=== PATIENT | male | born 1950 | race Caucasian/White ===

== ENCOUNTER 2017-12-28 08:04 | Emergency (ER) | payer OTHER ==
--- NOTE | 2017-12-28 08:33 | RAD REPORT ---
EXAM DESCRIPTION: CT - Ct Stroke Brain Wo Cont - 12/28/2017 8:23 am CLINICAL HISTORY: Left-sided numbness x2 days COMPARISON: HEAD BRAIN W O CONTRAST dated 06/30/2009 TECHNIQUE: Computed axial tomography of the head was obtained. IV contrast was not requested. All CT scans are performed using dose optimization technique as appropriate and may include automated exposure control or mA/KV adjustment according to patient size. FINDINGS: An intracranial bleed is not seen . The ventricles are normal in caliber. No extra-axial fluid collection is noted. An 11 millimeter low-density areas present within the right thalamus. It has developed since the prio r exam. Low-density areas within the left cerebrum are unchanged and likely indicate old infarction. Fluid within the sinuses/ mastoids is not seen. IMPRESSION: 11 millimeter low-density area within the right thalamus has developed since 2009. It deluca s more of the appearance of being acute then a chronic and probably represents an acute infarction. Exam was discussed with Manohar in the Emergency Room at 8:25 a.m. December 28, 2017
[2017-12-28 08:41] LABS: Absolute Lymphocytes (CBC) 3.5 K/uL (0.7-4.9); Absolute Neutrophil 3.7 K/uL (1.8-8.0); Basophils % 0.9 % (0-1.3); Eosinophils % 2.6 % (0-4.4); Hematocrit 51.2 % (39.6-49.0); Lymphocytes % 41.4 % (15.3-44.8); MCH 33.1 pg (27.0-35.0); MCV 94.5 fL (80-100); MPV 8.3 fL (7.6-11.3); Monocytes % 11.9 % (3.3-12.3); RBC Red Blood Cell Count 5.43 M/uL (4.33-5.43)
[2017-12-28 08:46] LABS: Protime INR 0.93
[2017-12-28 08:50] LABS: Potassium 4.4 mmol/L (3.5-5.1)
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
--- NOTE | 2017-12-28 09:10 | ER ---
Nurse's Notes [facility] Name: Jose Benson Age: 67 yrs Sex: Male : 1950 Arrival Date: 12/28/2017 Time: 08:05 Bed 16 Private MD: Juan Coles E Diagnosis: Cerebral infarction-Right thalamus Presentation: 12/28 08:14 Presenting complaint: Patient states: i have feeling of numbness on my L side, L side hj of face, L arm, L rib cage, L leg for 2 days now, this morning when i woke up around 4 am, i felt the worsening symptom with weakness on my L arm and L leg; denies nausea and vomiting; denies headache, speech normal; A\\T\\O x 4;. Transition of care: patient was not received from another setting of care. Onset of symptoms was December 26, 2017. Risk Assessment: Do you want to hurt yourself or someone else? Patient reports no desire to harm self or others. Initial Sepsis Screen: Does the patient meet any 2 criteria? No. Patient's initial sepsis screen is negative. Does the patient have a suspected source of infection? No. Patient's initial sepsis screen is negative. Care prior to arrival: None. 08:14 Method Of Arrival: Ambulatory 08:14 Acuity: DANDY 3 hj 08:14 An acute neurological deficit is present. The patients blood glucose was checked before hj arriving to the hospital and was found to be normal. Triage Assessment: 08:14 General: Appears in no apparent distress. uncomfortable, Behavior is cooperative, hj appropriate for age, anxious. Pain: Denies pain. EENT: No signs and/or symptoms were reported regarding the EENT system. Neuro: Level of Consciousness is awake, alert, obeys commands, Oriented to person, place, time, situation, Appropriate for age. Cardiovascular: Capillary refill < 3 seconds Patient's skin is warm and dry. Respiratory: Airway is patent Respiratory effort is even, unlabored, Respiratory pattern is regular, symmetrical. GI: No signs and/or symptoms were reported involving the gastrointestinal system. : No signs and/or symptoms were reported regarding the genitourinary system. Derm: No signs and/or symptoms reported regarding the dermatologic system. Musculoskeletal: Capillary refill < 3 seconds, Reports numbness in left ear, left cheek, left bahai, left jaw, left arm and left leg. 08:14 The onset of the patients symptoms was December 26, 2017 at 09:00. hj 08:14 Neuro: Reports numbness weakness in left leg and left arm and face and left jaw and hj left bahai and left cheek and left ear. Stroke Activation: Symptom onset > 6 hours Physician: Stroke Attending; Name: ; Notified At: 08:14; Arrived At: 08:14 Physician: Chief Stroke Resident; Name: ; Notified At: 08:14; Arrived At: Physician: Stroke Resident; Name: ; Notified At: 08:14; Arrived At: Physician: ED Attending; Name: ; Notified At: 08:14; Arrived At: Physician: ED Resident; Name: ; Notified At: 08:14; Arrived At: Historical: - Allergies: 08:17 No Known Allergies; hj - Home Meds: 08:17 lisinopril 40 mg oral tab 1 tab once daily [Active]; gabapentin Oral [Active]; hj Metformin Oral [Active]; Toujeo SoloStar subcutaneous [Active]; - PMHx: 08:17 Diabetes - IDDM; Hypertension; neuropathy; hj - PSHx: 08:17 nephrectomy; splenectomy; retinal sx; hj - Immunization history:: Adult Immunizations unknown. - Social history:: Smoking status: Patient/guardian denies using tobacco, Patient/guardian denies using alcohol. - Ebola Screening: : Patient negative for fever greater than or equal to 101.5 degrees Fahrenheit, and additional compatible Ebola Virus Disease symptoms Patient denies exposure to infectious person Patient denies travel to an Ebola-affected area in the 21 days before illness onset. Screenin:18 Abuse screen: Denies threats or abuse. Denies injuries from another. Nutritional hj screening: No deficits noted. Tuberculosis screening: No symptoms or risk factors identified. Fall Risk None identified. Assessment: 08:15 Reassessment: pt was wheeled to CT;. hj 08:30 Patient has been NPO before screening. The patient is alert, and able to follow commands. The patient does not exhibit slurred or garbled speech. The patient is not exhibiting difficulty speaking. The patient does not exhibit difficulty understanding words. The patient is able to swallow own secretions with no drooling or need for suction. Patient tolerated one teaspoon of water. No drooling, immediate coughing, gurgling, or clearing of the throat was noted. The patient passed the bedside swallow screening. Oral medications may be given as ordered. Contact Physician for further diet orders. Provider notified of bedside swallow screening results: Julio Galarza RN. 08:30 T-PA (Activase) Screening: Contraindications: Rapidly improving condition or minor hj deficit: No. 08:45 Reassessment: pt states, "i took 1 tab of aspirin 325 mg today before coming in the ED";. 09:20 Reassessment: report called to Maria L Najera RN, room 2254 nurse;. Vital Signs: 08:21 BP 196 / 104; Pulse 91; Resp 18; Temp 97.6(TE); Pulse Ox 100% on R/A; Weight 72.57 kg; Height 5 ft. 9 in. (175.26 cm); Pain 0/10; 08:54 BP 178 / 76; Pulse 74; Resp 18; Pulse Ox 95% on R/A; hj 09:24 BP 179 / 103; Pulse 70; Resp 18; Pulse Ox 100% on R/A; hj 09:55 BP 175 / 100; Pulse 72; Resp 18; Pulse Ox 100% on R/A; hj 08:21 Body Mass Index 23.63 (72.57 kg, 175.26 cm) hj 09:24 provider aware of BP; NIH Stroke Scale Scores: 08:25 NIHSS Score: 2 pm1 08:30 NIHSS Score: 2 ED Course: 08:05 Patient arrived in ED. mr 08:05 Neptali Pastrana MD is Private Physician. mr 08:05 Juan Coles MD is Private Physician. mr 08:08 [facility]. pm1 08:08 Akira Jaramillo MD is Attending Physician. pm1 08:12 Julio Galarza, RN is Primary Nurse. hj 08:14 Arm band placed on right wrist. hj 08:14 Patient has correct armband on for positive identification. Placed in gown. Bed in low hj position. Call light in reach. Side rails up X 1. Adult w/ patient. 08:14 Initial lab(s) drawn, by ED staff, sent to lab. Inserted saline lock: 20 gauge in right hj antecubital area, using aseptic technique. Blood collected. 08:16 Triage completed. hj 08:24 CT Stroke Brain w/o Contrast In Process Unspecified. EDMS 08:34 initiated a transfer with Aria from the [facility] transfer center. eb 08:[address] Bob the neurologist from [facility] with Manohar for patient eb transfer consultation. 08:49 X-ray completed. Portable x-ray completed in exam room. Patient tolerated procedure jb2 well. 08:49 connected the hospitalist from [facility] with Manohar for patient transfer eb consulation. 08:55 Stroke CXR 1 View In Process Unspecified. EDMS 09:54 No provider procedures requiring assistance completed. Patient transferred, IV remains hj in place. intact. Administered Medications: 09:39 Drug: Tylenol 500 mg Route: PO; ss 09:56 Follow up: Response: Pain is decreased Point of Care Testing: Blood Glucose: 08:14 Blood Glucose: 131 mg/dL; Ranges: Outcome: 09:09 ER care complete, transfer ordered by . pm1 09:55 Transferred by ground EMS to [facility], Transfer form completed. X-rays sent w/ patient. 09:55 Condition: stable 09:55 Instructed on the need for transfer, Demonstrated understanding of instructions. 09:56 Patient left the ED. NIH Stroke Scale - NIH Stroke Score Date: 12/28/2017 Time: 08:25 Total Score = 2 1a. Level of Consciousness (LOC) - 0(Alert) 1b. Level of Consciousness (LOC) (Year \\T\\ Age) - 0(Both) 1c. LOC Commands (Open \\T\\ Closes Eyes/Automobile Service Station Manager) - 0(Both) 2. Best Gaze (Lateral Gaze Paresis) - 0(Normal) 3. Visual Field Loss - 0(No visual loss) 4. Facial Palsy - 0(Normal) 5a. Left Arm: Motor (10-second hold) - 1(Drift) 5b. Right Arm: Motor (10-second hold) - 0(No drift) 6a. Left Leg: Motor (5-second hold - always test supine) - 1(Drift) 6b. Right Leg: Motor (5-second hold - always test supine) - 0(No drift) 7. Limb Ataxia (finger/nose \\T\\ heel/rinaldi - test with eyes open) - 0(Absent) 8. Sensory Loss (pinprick arms/legs/face) - 0(Normal) 9. Best Language: Aphasia (description/naming/reading) - 0(No aphasia) 10. Dysarthria (speech clarity - read or repeat words) - 0(Normal) 11. Extinction and Inattention (visual/tactile/auditory/spatial/personal) - 0(No abnormality) Initials: pm1 NIH Stroke Scale - NIH Stroke Score Date: 12/28/2017 Time: 08:30 Total Score = 2 1a. Level of Consciousness (LOC) - 0(Alert) 1b. Level of Consciousness (LOC) (Year \\T\\ Age) - 0(Both) 1c. LOC Commands (Open \\T\\ Closes Eyes/Automobile Service Station Manager) - 0(Both) 2. Best Gaze (Lateral Gaze Paresis) - 0(Normal) 3. Visual Field Loss - 0(No visual loss) 4. Facial Palsy - 0(Normal) 5a. Left Arm: Motor (10-second hold) - 0(No drift) 5b. Right Arm: Motor (10-second hold) - 0(No drift) 6a. Left Leg: Motor (5-second hold - always test supine) - 2(Drift, some effort against gravity) 6b. Right Leg: Motor (5-second hold - always test supine) - 0(No drift) 7. Limb Ataxia (finger/nose \\T\\ heel/rinaldi - test with eyes open) - 0(Absent) 8. Sensory Loss (pinprick arms/legs/face) - 0(Normal) 9. Best Language: Aphasia (description/naming/reading) - 0(No aphasia) 10. Dysarthria (speech clarity - read or repeat words) - 0(Normal) 11. Extinction and Inattention (visual/tactile/auditory/spatial/personal) - 0(No abnormality) Initials: ruby Signatures: Dispatcher [employer] [facility] Fernandez David Hammer jb2 Rae Brush RN RN ss Julio Galarza RN RN hj Marinas, Patrick, [facility] CHILD CARE DIRECTOR pm1 Renée Malone Corrections: (The following items were deleted from the chart) 08:28 08:21 BP 196 / 104; Pulse 91bpm; Resp 18bpm; Pulse Ox 100% RA; Temp 98.1F hj Temporal; 77.11 kg; Height 5 ft. 8 in.; BMI: 25.8; Pain 0/10; hj
[2017-12-28] MEDS ORDERED: ACETAMINOPHEN 500 MG TAB ONE (09:50)
--- NOTE | 2017-12-28 10:30 | RAD REPORT ---
EXAM DESCRIPTION: Itzel Single View12/28/2017 8:55 am CLINICAL HISTORY: Chest pain COMPARISON: None FINDINGS: Calcified granuloma is present within the right lung. The lungs appear clear of acute infiltrate. The heart is normal size IMPRESSION: No acute abnormalities displayed
--- NOTE | 2017-12-29 07:58 | EKG ---
Test Date: 2017-12-27 Test Time: 11:12:21 Coffee Machine Technician: BERONICA MEASUREMENT RESULTS: Intervals: Rate: 106 SC: 122 QRSD: 74 QT: 322 QTc: 427 Moyers: P: 73 SC: 122 QRS: 58 T: 75 INTERPRETIVE STATEMENTS: Sinus tachycardia Otherwise normal ECG Compared to ECG 01/03/2010 07:42:24 Sinus rhythm no longer present Ventricular premature complex(es) no longer present T-wave abnormality no longer present Electronically Signed On 12-29-17 07:55:17 CDT by Antonio Galaviz
--- NOTE | 2017-12-30 07:11 | EKG ---
Test Date: 2017-12-28 Test Time: 08:36:12 Sheet Rock Installation Helper: TANYA MEASUREMENT RESULTS: Intervals: Rate: 77 [place]: 170 QRSD: 112 QT: 388 QTc: 439 Merkel: P: 59 [place]: 170 QRS: 14 T: 81 INTERPRETIVE STATEMENTS: Normal sinus rhythm Nonspecific T wave abnormality Abnormal ECG Compared to ECG 12/27/2017 11:12:21 T-wave abnormality now present Sinus tachycardia no longer present Electronically Signed On 12-30-17 07:09:41 CDT by Antonio Galaviz
== END 2017-12-28 09:56 | disposition short-term general hospital (02) ==
LOC: ER 08:04
DX: I63.8 Other cerebral infarction (principal); I10 Essential (primary) hypertension; R29.702 NIHSS score 2; E11.9 Type 2 diabetes mellitus without complications; Z79.4 Long term (current) use of insulin
CPT/HCPCS: 36415; 70450; 71045; 80048; 82962; 85025; 85610; 85730; 93005; 99285

== ENCOUNTER 2018-01-26 22:35 | Emergency (ER) | payer OTHER ==
--- OUTSIDE RECORDS SUMMARY | 2018-01-26 22:37 | XMS REPORT ---
:1950 [facility] Address [address] [place] [address] Dr. Cortez [address] [place] [id number] Care Team Providers Name Role Phone ALISSA LOPEZ Unavailable Unavailable Problems This patient has no known problems. Allergies, Adverse Reactions, Alerts This patient has no known allergies or adverse reactions. Medications This patient has no known medications. Results Test Description Test Time Test Comments Text Results Atomic Results Result Comments POCT-GLUCOSE METER 2017-12-30 07:47:00 Test Item Value Reference Range Comments POC-GLUCOSE METER (BEAKER) (test 79 mg/dL 70-110 TESTED AT [facility] [address] [facility] okae=[id number]) [facility] [address] BASIC METABOLIC [id number] 05:19:00 Test Item Value Reference Range Comments SODIUM (BEAKER) (test 134 meq/L 136-145 tgfv=372) POTASSIUM (BEAKER) (test 3.8 meq/L 3.5-5.1 ibnb=673) CHLORIDE (BEAKER) (test 104 meq/L 98-107 xmic=553) CO2 (BEAKER) (test 23 meq/L 22-29 wegr=231) BLOOD UREA NITROGEN 13 mg/dL 7-21 (BEAKER) (test qzwr=682) CREATININE (BEAKER) (test 0.66 mg/dL 0.57-1.25 sjet=927) GLUCOSE RANDOM (BEAKER) 70 mg/dL 70-105 (test pfvr=792) CALCIUM (BEAKER) (test 8.8 mg/dL 8.4-10.2 aait=907) EGFR (BEAKER) (test 121 mL/min/1.73 sq m ESTIMATED GFR IS NOT comn=1188) ACCURATE CREATININE CLEARANCE IN PREDICTING GLOMERULAR FILTRATION RATE. ESTIMATED GFR IS NOT APPLICABLE FOR DIALYSIS PATIENTS. MR, MRA, BRAIN, WITHOUT [id number] 23:04:00Reason for exam:-> Ischemic Stroke EvaluationFINAL REPORT CLINICAL HISTORY: StrokeIschemic Stroke Evaluation TECHNIQUE: MRI of the brain utilizing axial T2 , FLAIR, GRE, DWI; sagittal and coronal T1-weighted images.MRA of the head utilizing 3-D hmmk-gh-qdorfb technique, with 3-D reconstructions. MRA of the neck utilizing 2-D and 3-D jtdm-ur-kmqgug technique, with 3-D reconstructions. COMPARISON: None MRI Brain without contrast Findings:Brain:Acute infarction within the right thalamus. Remote bilateral parietal occipitaland frontal lobe infarction. Remote left cerebellar infarction. Multiple bilateral T2 and FLAIR hyperintense periventricular and deep white matter foci likely represent chronic white matter microvascular disease.No intracranial hemorrhage. Generalized parenchymal volume loss with commensurate enlargement of CSF spaces and ventricles. There is no hydrocephalus or midline shift. There are no extra -axial fluid collections. The craniocervical junction is preserved. The major intracranial flow-voids appear patent. Bilateral misshapen globes. Heterogeneous marrow signal clivus. Polypoid mucosal thickening in the right frontal sinus. Right mastoid air cell effusion. Middle ears clear. MRA head: Severe stenosis of the V4 segment of the left vertebral artery and moderate stenosis of the proximal V4 segment of the right vertebral artery. Anterior circulation demonstrates no significant stenosis. The bilateral posterior cerebral arteries and basilar artery are patent.There is no evidence of intracranial aneurysm or major branch vessel occlusion. MRA NeckEvaluation of the cervical vasculature secondary to motion artifact.There is approximately 50% stenosis of the origin of the right internal carotid artery secondary to atherosclerosis. Approximate 40% stenosis of the origin of the left internal carotid artery secondary to atherosclerosis. There is antegrade flow in the vertebral arteries in theneck. IMPRESSION:Acute infarction within the right thalamus. Remote infarctions with encephalomalacia in the bilateral parietal, occipital frontal lobes and also within the left cerebellar hemisphere.Severe stenosis of the V4 segment of the left vertebral artery and moderate stenosis of the proximalV4 segment of the right vertebral artery. Evaluation of the cervical vasculature secondary to motionartifact. There is approximately 50% stenosis of the origin of the right internal carotid artery and40% stenosis of the origin of the left internal carotid artery secondary to atherosclerosis. NOTIFICATION: The significant results of this study were discussed with and acknowledged by the stroke team, by telephone on 12/29/2017 11:04 PM. Signed: Yessi Grewal Verified Date/Time: 12/29/2017 23:04:35 Reading Location: [address] Transitional Reading Room MR, MRA, NECK, WITHOUT IV [id number] 23:04:00Reason for exam:->Ischemic Stroke EvaluationFINAL REPORT CLINICAL HISTORY: StrokeIschemic Stroke Evaluation TECHNIQUE: MRI of the brain utilizing axial T2, FLAIR, GRE, DWI; sagittal and coronal T1-weighted images.MRA of the head utilizing 3-D time-of- flight technique, with 3-D reconstructions. MRA of the neck utilizing 2-D and 3- D gnam-vx-gdgigt technique, with 3-D reconstructions. COMPARISON: None MRI Brain without contrast Findings:Brain:Acute infarction within the right thalamus. Remote bilateral parietal occipitaland frontal lobe infarction. Remote left cerebellar infarction. Multiple bilateral T2 and FLAIR hyperintense periventricular and deep white matter foci likely represent chronic white matter microvascular disease.No intracranial hemorrhage. Generalized parenchymal volume loss with commensurate enlargement of CSF spaces and ventricles. There is no hydrocephalus or midline shift. There are no extra- axial fluid collections. The craniocervical junction is preserved. The major intracranial flow-voids appear patent. Bilateral misshapen globes. Heterogeneous marrow signal clivus. Polypoid mucosal thickening in the right frontal sinus. Right mastoid air cell effusion. Middle ears clear. MRA head: Severe stenosis of the V4 segment of the left vertebral artery and moderate stenosis of the proximal V4 segment of the right vertebral artery. Anterior circulation demonstrates no significant stenosis. The bilateral posterior cerebral arteries and basilar artery are patent.There is no evidence of intracranial aneurysm or major branch vessel occlusion. MRA NeckEvaluation of the cervical vasculature secondary to motion artifact.There is approximately 50% stenosis of the origin of the right internal carotid artery secondary to atherosclerosis. Approximate 40% stenosis of the origin of the left internal carotid artery secondary to atherosclerosis. There is antegrade flow in the vertebral arteries in theneck. IMPRESSION:Acute infarction within the right thalamus. Remote infarctions with encephalomalacia in the bilateral parietal, occipital frontal lobes and also within the left cerebellar hemisphere.Severe stenosis of the V4 segment of the left vertebral artery and moderate stenosis of the proximalV4 segment of the right vertebral artery. Evaluation of the cervical vasculature secondary to motionartifact. There is approximately 50% stenosis of the origin of the right internal carotid artery and40% stenosis of the origin of the left internal carotid artery secondary to atherosclerosis. NOTIFICATION: The significant results of this study were discussed with and acknowledged by the stroke team, by telephone on 12/29/2017 11:04 PM. Signed: Yessi Grewal Verified Date/Time: 12/29/2017 23:04:35 Reading Location: [address] Transitional Reading Room MR, BRAIN, WITHOUT [id number] 23:04:00Reason for exam:->Ischemic Stroke EvaluationFINAL REPORT CLINICAL HISTORY: StrokeIschemic Stroke Evaluation TECHNIQUE: MRI of the brain utilizing axial T2, FLAIR, GRE, DWI; sagittal and coronal T1-weighted images.MRA of the head utilizing 3-D time-of- flight technique, with 3-D reconstructions. MRA of the neck utilizing 2-D and 3- D emnk-sv-bahdmi technique, with 3-D reconstructions. COMPARISON: None MRI Brain without contrast Findings:Brain:Acute infarction within the right thalamus. Remote bilateral parietal occipitaland frontal lobe infarction. Remote left cerebellar infarction. Multiple bilateral T2 and FLAIR hyperintense periventricular and deep white matter foci likely represent chronic white matter microvascular disease.No intracranial hemorrhage. Generalized parenchymal volume loss with commensurate enlargement of CSF spaces and ventricles. There is no hydrocephalus or midline shift. There are no extra- axial fluid collections. The craniocervical junction is preserved. The major intracranial flow-voids appear patent. Bilateral misshapen globes. Heterogeneous marrow signal clivus. Polypoid mucosal thickening in the right frontal sinus. Right mastoid air cell effusion. Middle ears clear. MRA head: Severe stenosis of the V4 segment of the left vertebral artery and moderate stenosis of the proximal V4 segment of the right vertebral artery. Anterior circulation demonstrates no significant stenosis. The bilateral posterior cerebral arteries and basilar artery are patent.There is no evidence of intracranial aneurysm or major branch vessel occlusion. MRA NeckEvaluation of the cervical vasculature secondary to motion artifact.There is approximately 50% stenosis of the origin of the right internal carotid artery secondary to atherosclerosis. Approximate 40% stenosis of the origin of the left internal carotid artery secondary to atherosclerosis. There is antegrade flow in the vertebral arteries in theneck. IMPRESSION:Acute infarction within the right thalamus. Remote infarctions with encephalomalacia in the bilateral parietal, occipital frontal lobes and also within the left cerebellar hemisphere.Severe stenosis of the V4 segment of the left vertebral artery and moderate stenosis of the proximalV4 segment of the right vertebral artery. Evaluation of the cervical vasculature secondary to motionartifact. There is approximately 50% stenosis of the origin of the right internal carotid artery and40% stenosis of the origin of the left internal carotid artery secondary to atherosclerosis. NOTIFICATION: The significant results of this study were discussed with and acknowledged by the stroke team, by telephone on 12/29/2017 11:04 PM. Signed: Yessi Grewal Verified Date/Time: 12/29/2017 23:04:35 Reading Location: [address] Reading Room POCT-GLUCOSE [id number] 21:28:00 Test Item Value Reference Range Comments POC-GLUCOSE METER (BEAKER) 136 mg/dL 70-110 TESTED AT [address] (test kdfy=5577) [place] [address] POCT-GLUCOSE [id number] 15:56:00 Test Item Value Reference Range Comments POC-GLUCOSE METER (BEAKER) 198 mg/dL 70-110 TESTED AT [address] (test lnuc=2641) [place] [address] POCT-GLUCOSE [id number] 14:50:00 Test Item Value Reference Range Comments POC-GLUCOSE METER (BEAKER) 204 mg/dL 70-110 TESTED AT [address] (test ybck=1395) [place] [address] POCT-GLUCOSE [id number] 12:16:00 Test Item Value Reference Range Comments POC-GLUCOSE METER (BEAKER) 127 mg/dL 70-110 TESTED AT [address] (test cfnp=2124) [place] [address] HEMOGLOBIN [id number] 10:57:00 Test Item Value Reference Range Comments HEMOGLOBIN A1C (BEAKER) (test lbov=424) 8.3 % 4.3-6.1 TROPONIN [id number] 02:04:00 Test Item Value Reference Range Comments TROPONIN I (BEAKER) (test nuak=774) 0.01 ng/mL 0.00-0.03 Troponin I (TnI) levels must be interpreted in the context of the presenting symptoms and the clinical findings. Elevated TnI levels indicate myocardial damage, but are not specific for ischemic heart disease. Elevated TnI levels are seen in patients with other cardiac conditions (including myocarditis and congestive heart failure), and slight TnI elevations occur in patients with other conditions, including sepsis, renal failure, acidosis, acute neurological disease, and persistent tachyarrhythmia.LIPID [id number] 01:58:00 Test Item Value Reference Range Comments TRIGLYCERIDES (BEAKER) (test pqan=403) 100 mg/dL CHOLESTEROL (BEAKER) (test uozi=403) 147 mg/dL HDL CHOLESTEROL (BEAKER) (test ugod=110) 31 mg/dL LDL CHOLESTEROL CALCULATED (BEAKER) (test 96 mg/dL gyis=329) Triglyceride Reference Range: Low Risk <150 Borderline 150- 199 High Risk 200-499 Very High Risk >=500Cholesterol Reference Range: Low Risk <200 Borderline 200-239 High Risk > 240HDL Cholesterol Reference Range: Low Risk >=60 High Risk <40LDL Cholesterol Reference Range: Optimal <100 Near Optimal 100-129 Borderline 130-159 High 160-189 Very High >=190BASIC METABOLIC [id number] 01:58:00 Test Item Value Reference Range Comments SODIUM (BEAKER) (test 132 meq/L 136-145 nrvs=930) POTASSIUM (BEAKER) (test 4.3 meq/L 3.5-5.1 kvzz=474) CHLORIDE (BEAKER) (test 102 meq/L 98-107 miya=141) CO2 (BEAKER) (test 23 meq/L 22-29 exqh=467) BLOOD UREA NITROGEN 14 mg/dL 7-21 (BEAKER) (test rptf=058) CREATININE (BEAKER) (test 0.82 mg/dL 0.57-1.25 ozpn=266) GLUCOSE RANDOM (BEAKER) 220 mg/dL 70-105 (test ldli=860) CALCIUM (BEAKER) (test 8.6 mg/dL 8.4-10.2 ones=865) EGFR (BEAKER) (test 94 mL/min/1.73 sq m ESTIMATED GFR IS NOT tuln=5301) ACCURATE CREATININE CLEARANCE IN PREDICTING GLOMERULAR FILTRATION RATE. ESTIMATED GFR IS NOT APPLICABLE FOR DIALYSIS PATIENTS. POCT-GLUCOSE [id number] 20:50:00 Test Item Value Reference Range Comments POC-GLUCOSE METER (BEAKER) 266 mg/dL 70-110 TESTED AT [facility] [address] [facility] (test ijvw=0438) [facility] [address] TROPONIN [id number] 18:56:00 Test Item Value Reference Range Comments TROPONIN I (BEAKER) (test msjk=015) 0.01 ng/mL 0.00-0.03 Troponin I (TnI) levels must be interpreted in the context of the presenting symptoms and the clinical findings. Elevated TnI levels indicate myocardial damage, but are not specific for ischemic heart disease. Elevated TnI levels are seen in patients with other cardiac conditions (including myocarditis and congestive heart failure), and slight TnI elevations occur in patients with other conditions, including sepsis, renal failure, acidosis, acute neurological disease, and persistent tachyarrhythmia.RAD, CHEST, 1 VIEW, NON [id number] 16:54:00Reason for exam:->sobShould this be performed at the bedside?-> YesFINAL REPORT History: Shortness of breath Comparison : None Findings: 4 mm calcified granuloma at the right lung apex. Lungs otherwise clear. No pleural effusions or pneumothorax. The heart shadow is normal in size. The thoracic aorta is mildly tortuous. Degenerative and hypertrophic changes are present in the spine. There are surgical clips in the abdomen. Impression: No evidence of acute cardiopulmonary disease. Signed: Nunu Swenson MDReport Verified Date/Time: 12/28/2017 16:54:45 Reading Location: [address] Reading Room TSH/FREE T4 IF [id number] 14:24:00 Test Item Value Reference Range Comments THYROID STIMULATING HORMONE (BEAKER) (test 1.27 uIU/mL 0.35-4.94 ruyt=610) VITAMIN B12 AND [id number] 14:24:00 Test Item Value Reference Range Comments VITAMIN B12 (BEAKER) (test mwae=437) 452 pg/mL 213-816 FOLATE (BEAKER) (test jmef=061) 13.1 ng/mL >=7.0 [id number] 13:51:00 Test Item Value Reference Range Comments PHOSPHORUS (BEAKER) (test otxg=729) 3.9 mg/dL 2.3-4.7 [id number] 13:51:00 Test Item Value Reference Range Comments MAGNESIUM (BEAKER) (test scsc=955) 2.0 mg/dL 1.6-2.6 COMPREHENSIVE METABOLIC [id number] 13:51:00 Test Item Value Reference Range Comments TOTAL PROTEIN (BEAKER) 7.3 gm/dL 6.0-8.3 (test crgz=914) ALBUMIN (BEAKER) (test 3.8 g/dL 3.5-5.0 hoag=4833) ALKALINE PHOSPHATASE 98 U/L 40-150 (BEAKER) (test moca=502) BILIRUBIN TOTAL (BEAKER) 0.5 mg/dL 0.2-1.2 (test gtbw=742) SODIUM (BEAKER) (test 131 meq/L 136-145 ndje=730) POTASSIUM (BEAKER) (test 4.2 meq/L 3.5-5.1 cnxe=325) CHLORIDE (BEAKER) (test 99 meq/L 98-107 fjkb=714) CO2 (BEAKER) (test 26 meq/L 22-29 pleu=620) BLOOD UREA NITROGEN 11 mg/dL 7-21 (BEAKER) (test mhtb=564) CREATININE (BEAKER) (test 0.82 mg/dL 0.57-1.25 pcmp=341) GLUCOSE RANDOM (BEAKER) 74 mg/dL 70-105 (test wvnm=556) CALCIUM (BEAKER) (test 9.3 mg/dL 8.4-10.2 pmsu=954) AST (SGOT) (BEAKER) (test 16 U/L 5-34 oily=532) ALT (SGPT) (BEAKER) (test 14 U/L 6-55 digo=057) EGFR (BEAKER) (test 94 mL/min/1.73 sq m ESTIMATED GFR IS NOT zaxx=2419) ACCURATE CREATININE CLEARANCE IN PREDICTING GLOMERULAR FILTRATION RATE. ESTIMATED GFR IS NOT APPLICABLE FOR DIALYSIS PATIENTS. BASIC METABOLIC [id number] 13:51:00 Test Item Value Reference Range Comments SODIUM (BEAKER) (test 131 meq/L 136-145 jqjt=238) POTASSIUM (BEAKER) (test 4.2 meq/L 3.5-5.1 bbck=978) CHLORIDE (BEAKER) (test 99 meq/L 98-107 hkza=781) CO2 (BEAKER) (test 26 meq/L 22-29 kpmh=402) BLOOD UREA NITROGEN 11 mg/dL 7-21 (BEAKER) (test olpx=546) CREATININE (BEAKER) (test 0.82 mg/dL 0.57-1.25 talf=794) GLUCOSE RANDOM (BEAKER) 74 mg/dL 70-105 (test dvry=551) CALCIUM (BEAKER) (test 9.3 mg/dL 8.4-10.2 scfp=381) EGFR (BEAKER) (test 94 mL/min/1.73 sq m ESTIMATED GFR IS NOT jcce=0179) ACCURATE CREATININE CLEARANCE IN PREDICTING GLOMERULAR FILTRATION RATE. ESTIMATED GFR IS NOT APPLICABLE FOR DIALYSIS PATIENTS. LIPID [id number] 13:51:00 Test Item Value Reference Range Comments TRIGLYCERIDES (BEAKER) (test awpc=218) 41 mg/dL CHOLESTEROL (BEAKER) (test bmwz=466) 160 mg/dL HDL CHOLESTEROL (BEAKER) (test wgjl=511) 37 mg/dL LDL CHOLESTEROL CALCULATED (BEAKER) (test 115 mg/dL ovtv=305) Triglyceride Reference Range: Low Risk <150 Borderline 150- 199 High Risk 200-499 Very High Risk >=500Cholesterol Reference Range: Low Risk <200 Borderline 200-239 High Risk > 240HDL Cholesterol Reference Range: Low Risk >=60 High Risk <40LDL Cholesterol Reference Range: Optimal <100 Near Optimal 100-129 Borderline 130-159 High 160-189 Very High >=190C-REACTIVE [id number] 13:51:00 Test Item Value Reference Range Comments C-REACTIVE PROTEIN (BEAKER) (test dgsq=969) 0.52 mg/dL 0.00-0.50 PROTHROMBIN [id number] 13:33:00 Test Item Value Reference Range Comments PROTIME (BEAKER) (test ezmv=671) 13.9 seconds 11.7-14.7 INR (BEAKER) (test yval=346) 1.1 <=5.9 RECOMMENDED COUMADIN/WARFARIN INR THERAPY RANGESSTANDARD DOSE: 2.0 - 3.0 Includes: PROPHYLAXIS forvenous thrombosis, systemic embolization; TREATMENT for venous thrombosis and/or pulmonary embolus.HIGH RISK: Target INR is 2.5-3.5 for patients with mechanical heart valves.CBC (HEMOGRAM ONLY)2017-12-28 13:24:00 Test Item Value Reference Range Comments WHITE BLOOD CELL COUNT (BEAKER) (test dhhd=216) 8.5 K/ L 3.5-10.5 RED BLOOD CELL COUNT (BEAKER) (test mtmk=595) 5.45 M/ L 4.63-6.08 HEMOGLOBIN (BEAKER) (test trka=291) 17.2 GM/DL 13.7-17.5 HEMATOCRIT (BEAKER) (test ahca=131) 51.1 % 40.1-51.0 MEAN CORPUSCULAR VOLUME (BEAKER) (test zehp=101) 93.8 fL 79.0-92.2 MEAN CORPUSCULAR HEMOGLOBIN (BEAKER) (test 31.6 pg 25.7-32.2 ydvd=647) MEAN CORPUSCULAR HEMOGLOBIN CONC (BEAKER) (test 33.7 GM/DL 32.3-36.5 tvox=401) RED CELL DISTRIBUTION WIDTH (BEAKER) (test 12.8 % 11.6-14.4 iimt=525) PLATELET COUNT (BEAKER) (test vmnt=284) 321 K/CU MM 150-450 MEAN PLATELET VOLUME (BEAKER) (test dqsc=059) 9.6 fL 9.4-12.4 NUCLEATED RED BLOOD CELLS (BEAKER) (test 0 /100 WBC 0-0 nkyh=640) CBC W/PLT COUNT & AUTO [id number] 13:24:00 Test Item Value Reference Range Comments WHITE BLOOD CELL COUNT (BEAKER) (test ecqm=824) 8.5 K/ L 3.5-10.5 RED BLOOD CELL COUNT (BEAKER) (test qbov=492) 5.45 M/ L 4.63-6.08 HEMOGLOBIN (BEAKER) (test squo=058) 17.2 GM/DL 13.7-17.5 HEMATOCRIT (BEAKER) (test bwxr=220) 51.1 % 40.1-51.0 MEAN CORPUSCULAR VOLUME (BEAKER) (test excl=194) 93.8 fL 79.0-92.2 MEAN CORPUSCULAR HEMOGLOBIN (BEAKER) (test 31.6 pg 25.7-32.2 drmz=272) MEAN CORPUSCULAR HEMOGLOBIN CONC (BEAKER) (test 33.7 GM/DL 32.3-36.5 xdxw=249) RED CELL DISTRIBUTION WIDTH (BEAKER) (test 12.8 % 11.6-14.4 eayg=105) PLATELET COUNT (BEAKER) (test qyrp=768) 321 K/CU MM 150-450 MEAN PLATELET VOLUME (BEAKER) (test ohbe=767) 9.6 fL 9.4-12.4 NUCLEATED RED BLOOD CELLS (BEAKER) (test 0 /100 WBC 0-0 lres=003) NEUTROPHILS RELATIVE PERCENT (BEAKER) (test 44 % azwe=632) LYMPHOCYTES RELATIVE PERCENT (BEAKER) (test 42 % ygvx=362) MONOCYTES RELATIVE PERCENT (BEAKER) (test 11 % xvui=474) EOSINOPHILS RELATIVE PERCENT (BEAKER) (test 2 % jaqq=001) BASOPHILS RELATIVE PERCENT (BEAKER) (test 1 % qted=428) NEUTROPHILS ABSOLUTE COUNT (BEAKER) (test 3.75 K/ L 1.78-5.38 zstl=609) LYMPHOCYTES ABSOLUTE COUNT (BEAKER) (test 3.59 K/ L 1.32-3.57 kosh=043) MONOCYTES ABSOLUTE COUNT (BEAKER) (test 0.90 K/ L 0.30-0.82 logd=179) EOSINOPHILS ABSOLUTE COUNT (BEAKER) (test 0.20 K/ L 0.04-0.54 lokp=156) BASOPHILS ABSOLUTE COUNT (BEAKER) (test 0.06 K/ L 0.01-0.08 lxfi=923) IMMATURE GRANULOCYTES-RELATIVE PERCENT (BEAKER) 0 % 0-1 (test rkuo=0847) POCT-GLUCOSE [id number] 11:56:00 Test Item Value Reference Range Comments POC-GLUCOSE METER (BEAKER) 93 mg/dL 70-110 TESTED AT [facility] [address] [facility] (test rkwk=3233) [facility] [id number]
--- OUTSIDE RECORDS SUMMARY | 2018-01-26 22:37 | XMS REPORT | Clinical Summary ---
:1950 Author Organization [facility] Address [address] [place] [address] Phone Care Team Providers Name Role Phone Unavailable Primary Care Provider Unavailable Allergies No Known Allergies Current Medications Prescription Sig. Disp. Refills Start End Date Status Date metFORMIN Take 1,000 mg by Active (GLUCOPHAGE) 1000 mouth 2 (two) times MG tablet daily before meals. lisinopril Take 40 mg by mouth Active (PRINIVIL,ZESTRIL daily. ) 40 MG tablet gabapentin Take 300 mg by Active (NEURONTIN) 300 mouth 2 (two) times MG daily. capsuleIndication s: Neuropathic Pain, Partial Epilepsy Treatment Adjunct Missing or Inject 30 Units Active Non-Formulary subcutaneously 2 8 Medication (two) times daily Pt own toujeo . ALPRAZolam Take 1 tablet (0.5 30 tablet 0 01/30/20 Active (XANAX) 0.5 MG mg total) by mouth 8 18 tablet every night as needed for Anxiety for up to 30 days. Max Daily Amount: 0.5 mg aspirin 81 MG Take 1 tablet (81 30 tablet 1 01/01/20 Active chewable tablet mg total) by mouth 8 19 daily. atorvastatin Take 1 tablet (80 30 tablet 1 12/31/19 Active (LIPITOR) 80 MG mg total) by mouth 8 19 tablet nightly. clopidogrel Take 1 tablet (75 30 tablet 1 12/31/19 Active (PLAVIX) 75 mg mg total) by mouth 8 19 tablet daily. insulin glargine Inject 30 Units 12/29/19 Discontinued (LANTUS) 100 subcutaneously 18 unit/mL injection every morning Use as directed . ALPRAZolam Take 1 tablet (0.5 30 tablet 0 12/31/19 Discontinued (XANAX) 0.5 MG mg total) by mouth 8 18 tablet every night as needed for Anxiety for up to 30 days. Max Daily Amount: 0.5 mg mINOCYCLine Take 1 capsule (100 20 capsule 0 01/10/20 (MINOCIN,DYNACIN) mg total) by mouth 8 18 100 MG capsule every 12 (twelve) hours for 10 days. 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 ([facility]);Hemisensory deficit;Tobacco abuse;Tobacco abuse counseling;Status post placement of implantable loop recorder;Stenosis of both vertebral arteries;Intracranial vascular stenosis after 01/25/2017 Social History Tobacco Use Types Packs/Day Years Used Date Never Assessed Sex Assigned at Date Recorded Not on file Last Filed Vital Signs Vital Sign Reading Time Taken Blood Pressure 169/82 12/30/2017 11:30 AM CDT Pulse 68 12/30/2017 11:30 AM CDT Temperature 35.7 C (96.3 F) 12/30/2017 7:25 AM CDT Respiratory Rate 18 12/30/2017 11:30 AM CDT Oxygen Saturation 97% 12/30/2017 7:25 AM CDT Inhaled Oxygen Concentration - - Weight 72.5 kg (159 lb 13.3 oz) 12/28/2017 11:00 AM CDT Height 175.3 cm (5' 9") 12/28/2017 11:00 AM CDT Body Mass Index 23.6 12/28/2017 11:00 AM CDT Plan of Treatment Not on file Results RHYTHM STRIP - SCAN (01/01/2018 12:32 PM)ECG 12 lead (12/30/2017 12:27 PM) Specimen Performing Laboratory Client Outlook MUSE Narrative Ventricular Rate 66 BPM Atrial Rate 66 BPM P-R Interval 166 ms QRS Duration 122 ms Q-T Interval 404 ms QTC Calculation(Bazett) 423 ms P Tiona 63 degrees R Tiona 34 degrees T Tiona 98 degrees Normal sinus rhythm Non-specific intra-ventricular conduction delay T wave abnormality, consider lateral ischemia Abnormal ECG No previous ECGs available Confirmed by MD Pepe Roberto ([id number]) on 12/30/2017 1:58:10 PM Procedure Note Interface, External Ris In - 12/30/2017 1:58 PM CDT Ventricular Rate 66 BPM Atrial Rate 66 BPM P-R Interval 166 ms QRS Duration 122 ms Q-T Interval 404 ms QTC Calculation(Bazett) 423 ms P Tiona 63 degrees R Tiona 34 degrees T Tiona 98 degrees Normal sinus rhythm Non-specific intra-ventricular conduction delay T wave abnormality, consider lateral ischemia Abnormal ECG No previous ECGs available Confirmed by MD Pepe Roberto ([id number]) on 12/30/2017 1:58:10 PM POC-Glucose meter (12/30/2017 7:32 AM)Only the most recent of7 resultswithin the time period is included. Component Value Ref Range POC-Glucose Meter 79Comment: TESTED AT [address] 70 - 110 mg/dL [address] Specimen Performing Laboratory Blood [address] [address] Basic metabolic panel (12/30/2017 4:43 AM)Only the most recent of3 resultswithin the time period is included. Component Value Ref Range Sodium 134 (L) 136 - 145 meq/L Potassium 3.8 3.5 - 5.1 meq/L Chloride 104 98 - 107 meq/L CO2 23 22 - 29 meq/L BUN 13 7 - 21 mg/dL Creatinine 0.66 0.57 - 1.25 mg/dL Glucose 70 70 - 105 mg/dL Calcium 8.8 8.4 - 10.2 mg/dL EGFR 121Comment: ESTIMATED GFR IS NOT ACCURATE mL/min/1.73 sq m CREATININE CLEARANCE IN PREDICTING GLOMERULAR FILTRATION RATE. ESTIMATED GFR IS NOT APPLICABLE FOR DIALYSIS PATIENTS. Specimen Performing Laboratory Blood [address] [address] MR brain without IV contrast (12/29/2017 7:01 PM) Specimen Performing Laboratory RIS Narrative FINAL REPORT CLINICAL HISTORY: Stroke Ischemic Stroke Evaluation TECHNIQUE: MRI of the brain utilizing axial T2, FLAIR, GRE, DWI; sagittal and coronal T1-weighted images. MRA of the head utilizing 3-D bwxt-xq-vimzco technique, with 3-D reconstructions. MRA of the neck utilizing 2-D and 3-D qkid-me-pkydlf technique, with 3-D reconstructions. COMPARISON: None MRI Brain without contrast Findings: Brain: Acute infarction within the right thalamus. Remote bilateral parietal occipital and frontal lobe infarction. Remote left cerebellar infarction. Multiple bilateral T2 and FLAIR hyperintense periventricular and deep white matter foci likely represent chronic white matter microvascular disease. No intracranial hemorrhage. Generalized parenchymal volume loss with commensurate enlargement of CSF spaces and ventricles. There is no hydrocephalus or midline shift. There are no extra-axial fluid collections. The craniocervical junction is preserved. [...] posterior cerebral arteries and basilar artery are patent. There is no evidence of intracranial aneurysm or major branch vessel occlusion. MRA Neck Evaluation of the cervical vasculature secondary to motion artifact. There is approximately 50% stenosis of the origin of the right internal carotid artery secondary to atherosclerosis. Approximate 40% stenosis of the origin of the left internal carotid artery secondary to atherosclerosis. There is antegrade flow in the vertebral arteries in the neck. IMPRESSION: Acute infarction within the right thalamus. Remote infarctions with encephalomalacia in the bilateral parietal, occipital frontal lobes and also within the left cerebellar hemisphere. Severe stenosis of the V4 segment of the left vertebral artery and moderate stenosis of the proximal V4 segment of the right vertebral artery. Evaluation of the cervical vasculature secondary to motion artifact. There is approximately 50% stenosis of the origin of the right internal carotid artery and 40% stenosis of the origin of the left internal carotid artery secondary to atherosclerosis. NOTIFICATION: The significant results of this study were discussed with and acknowledged by the stroke team, by telephone on 12/29/2017 11:04 PM. Signed: Yessi Grewal MD Report Verified Date/Time:12/29/2017 23:04:35 Reading Location: [facility] [address] [place] [address] Reading Room Procedure Note Interface, External Ris In - 12/29/2017 11:06 PM CDT FINAL REPORT CLINICAL HISTORY: Stroke Ischemic Stroke Evaluation TECHNIQUE: MRI of the brain utilizing axial T2, FLAIR, GRE, DWI; sagittal and coronal T1-weighted images. MRA of the head utilizing 3-D mlxt-rm-zqhlwp technique, with 3-D reconstructions. MRA of the neck utilizing 2-D and 3-D ukpx-ec-hdwjor technique, with 3-D reconstructions. COMPARISON: None MRI Brain without contrast Findings: Brain: Acute infarction within the right thalamus. Remote bilateral parietal occipital and frontal lobe infarction. Remote left cerebellar infarction. Multiple bilateral T2 and FLAIR hyperintense periventricular and deep white matter foci likely represent chronic white matter microvascular disease. No intracranial hemorrhage. Generalized parenchymal volume loss with commensurate enlargement of CSF spaces and ventricles. There is no hydrocephalus or midline shift. There are no extra-axial fluid collections. The craniocervical junction is preserved. [...] posterior cerebral arteries and basilar artery are patent. There is no evidence of intracranial aneurysm or major branch vessel occlusion. MRA Neck Evaluation of the cervical vasculature secondary to motion artifact. There is approximately 50% stenosis of the origin of the right internal carotid artery secondary to atherosclerosis. Approximate 40% stenosis of the origin of the left internal carotid artery secondary to atherosclerosis. There is antegrade flow in the vertebral arteries in the neck. IMPRESSION: Acute infarction within the right thalamus. Remote infarctions with encephalomalacia in the bilateral parietal, occipital frontal lobes and also within the left cerebellar hemisphere. Severe stenosis of the V4 segment of the left vertebral artery and moderate stenosis of the proximal V4 segment of the right vertebral artery. Evaluation of the cervical vasculature secondary to motion artifact. There is approximately 50% stenosis of the origin of the right internal carotid artery and 40% stenosis of the origin of the left internal carotid artery secondary to atherosclerosis. NOTIFICATION: The significant results of this study were discussed with and acknowledged by the stroke team, by telephone on 12/29/2017 11:04 PM. Signed: Yessi Grewal MD Report Verified Date/Time: 12/29/2017 23:04:35 Reading Location: [address] Transitional Reading Room neck without IV contrast (12/29/2017 7:01 PM) Specimen Performing Laboratory [employer] Narrative FINAL REPORT CLINICAL HISTORY: Stroke Ischemic Stroke Evaluation TECHNIQUE: MRI of the brain utilizing axial T2, FLAIR, GRE, DWI; sagittal and coronal T1-weighted images. MRA of the head utilizing 3-D erir-tj-yibqri technique, with 3-D reconstructions. MRA of the neck utilizing 2-D and 3-D kthd-ak-wckbtg technique, with 3-D reconstructions. COMPARISON: None MRI Brain without contrast Findings: Brain: Acute infarction within the right thalamus. Remote bilateral parietal occipital and frontal lobe infarction. Remote left cerebellar infarction. Multiple bilateral T2 and FLAIR hyperintense periventricular and deep white matter foci likely represent chronic white matter microvascular disease. No intracranial hemorrhage. Generalized parenchymal volume loss with commensurate enlargement of CSF spaces and ventricles. There is no hydrocephalus or midline shift. There are no extra-axial fluid collections. The craniocervical junction is preserved. [...] posterior cerebral arteries and basilar artery are patent. There is no evidence of intracranial aneurysm or major branch vessel occlusion. MRA Neck Evaluation of the cervical vasculature secondary to motion artifact. There is approximately 50% stenosis of the origin of the right internal carotid artery secondary to atherosclerosis. Approximate 40% stenosis of the origin of the left internal carotid artery secondary to atherosclerosis. There is antegrade flow in the vertebral arteries in the neck. IMPRESSION: Acute infarction within the right thalamus. Remote infarctions with encephalomalacia in the bilateral parietal, occipital frontal lobes and also within the left cerebellar hemisphere. Severe stenosis of the V4 segment of the left vertebral artery and moderate stenosis of the proximal V4 segment of the right vertebral artery. Evaluation of the cervical vasculature secondary to motion artifact. There is approximately 50% stenosis of the origin of the right internal carotid artery and 40% stenosis of the origin of the left internal carotid artery secondary to atherosclerosis. NOTIFICATION: The significant results of this study were discussed with and acknowledged by the stroke team, by telephone on 12/29/2017 11:04 PM. Signed: Yessi Grewal MD Report Verified Date/Time:12/29/2017 23:04:35 Reading Location: [address] Transitional Reading Room Procedure Note Interface, External Ris In - 12/29/2017 11:06 PM CDT FINAL REPORT CLINICAL HISTORY: Stroke Ischemic Stroke Evaluation TECHNIQUE: MRI of the brain utilizing axial T2, FLAIR, GRE, DWI; sagittal and coronal T1-weighted images. MRA of the head utilizing 3-D fymy-hc-mvlohp technique, with 3-D reconstructions. MRA of the neck utilizing 2-D and 3-D lvza-rc-uitywi technique, with 3-D reconstructions. COMPARISON: None MRI Brain without contrast Findings: Brain: Acute infarction within the right thalamus. Remote bilateral parietal occipital and frontal lobe infarction. Remote left cerebellar infarction. Multiple bilateral T2 and FLAIR hyperintense periventricular and deep white matter foci likely represent chronic white matter microvascular disease. No intracranial hemorrhage. Generalized parenchymal volume loss with commensurate enlargement of CSF spaces and ventricles. There is no hydrocephalus or midline shift. There are no extra-axial fluid collections. The craniocervical junction is preserved. [...] posterior cerebral arteries and basilar artery are patent. There is no evidence of intracranial aneurysm or major branch vessel occlusion. MRA Neck Evaluation of the cervical vasculature secondary to motion artifact. There is approximately 50% stenosis of the origin of the right internal carotid artery secondary to atherosclerosis. Approximate 40% stenosis of the origin of the left internal carotid artery secondary to atherosclerosis. There is antegrade flow in the vertebral arteries in the neck. IMPRESSION: Acute infarction within the right thalamus. Remote infarctions with encephalomalacia in the bilateral parietal, occipital frontal lobes and also within the left cerebellar hemisphere. Severe stenosis of the V4 segment of the left vertebral artery and moderate stenosis of the proximal V4 segment of the right vertebral artery. Evaluation of the cervical vasculature secondary to motion artifact. There is approximately 50% stenosis of the origin of the right internal carotid artery and 40% stenosis of the origin of the left internal carotid artery secondary to atherosclerosis. NOTIFICATION: The significant results of this study were discussed with and acknowledged by the stroke team, by telephone on 12/29/2017 11:04 PM. Signed: Yessi Grewal MD Report Verified Date/Time: 12/29/2017 23:04:35 Reading Location: [address] Transitional Reading Room head without IV contrast (12/29/2017 7:01 PM) Specimen Performing Laboratory [employer] Narrative FINAL REPORT CLINICAL HISTORY: Stroke Ischemic Stroke Evaluation TECHNIQUE: MRI of the brain utilizing axial T2, FLAIR, GRE, DWI; sagittal and coronal T1-weighted images. MRA of the head utilizing 3-D fgje-gt-qoneey technique, with 3-D reconstructions. MRA of the neck utilizing 2-D and 3-D srcj-qd-gpgigz technique, with 3-D reconstructions. COMPARISON: None MRI Brain without contrast Findings: Brain: Acute infarction within the right thalamus. Remote bilateral parietal occipital and frontal lobe infarction. Remote left cerebellar infarction. Multiple bilateral T2 and FLAIR hyperintense periventricular and deep white matter foci likely represent chronic white matter microvascular disease. No intracranial hemorrhage. Generalized parenchymal volume loss with commensurate enlargement of CSF spaces and ventricles. There is no hydrocephalus or midline shift. There are no extra-axial fluid collections. The craniocervical junction is preserved. [...] posterior cerebral arteries and basilar artery are patent. There is no evidence of intracranial aneurysm or major branch vessel occlusion. MRA Neck Evaluation of the cervical vasculature secondary to motion artifact. There is approximately 50% stenosis of the origin of the right internal carotid artery secondary to atherosclerosis. Approximate 40% stenosis of the origin of the left internal carotid artery secondary to atherosclerosis. There is antegrade flow in the vertebral arteries in the neck. IMPRESSION: Acute infarction within the right thalamus. Remote infarctions with encephalomalacia in the bilateral parietal, occipital frontal lobes and also within the left cerebellar hemisphere. Severe stenosis of the V4 segment of the left vertebral artery and moderate stenosis of the proximal V4 segment of the right vertebral artery. Evaluation of the cervical vasculature secondary to motion artifact. There is approximately 50% stenosis of the origin of the right internal carotid artery and 40% stenosis of the origin of the left internal carotid artery secondary to atherosclerosis. NOTIFICATION: The significant results of this study were discussed with and acknowledged by the stroke team, by telephone on 12/29/2017 11:04 PM. Signed: Yessi Grewal MD Report Verified Date/Time:12/29/2017 23:04:35 Reading Location: [address] Transitional Reading Room Procedure Note Interface, External Ris In - 12/29/2017 11:06 PM CDT FINAL REPORT CLINICAL HISTORY: Stroke Ischemic Stroke Evaluation TECHNIQUE: MRI of the brain utilizing axial T2, FLAIR, GRE, DWI; sagittal and coronal T1-weighted images. MRA of the head utilizing 3-D hahq-cg-zmxtdi technique, with 3-D reconstructions. MRA of the neck utilizing 2-D and 3-D hlzb-dg-eibqms technique, with 3-D reconstructions. COMPARISON: None MRI Brain without contrast Findings: Brain: Acute infarction within the right thalamus. Remote bilateral parietal occipital and frontal lobe infarction. Remote left cerebellar infarction. Multiple bilateral T2 and FLAIR hyperintense periventricular and deep white matter foci likely represent chronic white matter microvascular disease. No intracranial hemorrhage. Generalized parenchymal volume loss with commensurate enlargement of CSF spaces and ventricles. There is no hydrocephalus or midline shift. There are no extra-axial fluid collections. The craniocervical junction is preserved. [...] posterior cerebral arteries and basilar artery are patent. There is no evidence of intracranial aneurysm or major branch vessel occlusion. MRA Neck Evaluation of the cervical vasculature secondary to motion artifact. There is approximately 50% stenosis of the origin of the right internal carotid artery secondary to atherosclerosis. Approximate 40% stenosis of the origin of the left internal carotid artery secondary to atherosclerosis. There is antegrade flow in the vertebral arteries in the neck. IMPRESSION: Acute infarction within the right thalamus. Remote infarctions with encephalomalacia in the bilateral parietal, occipital frontal lobes and also within the left cerebellar hemisphere. Severe stenosis of the V4 segment of the left vertebral artery and moderate stenosis of the proximal V4 segment of the right vertebral artery. Evaluation of the cervical vasculature secondary to motion artifact. There is approximately 50% stenosis of the origin of the right internal carotid artery and 40% stenosis of the origin of the left internal carotid artery secondary to atherosclerosis. NOTIFICATION: The significant results of this study were discussed with and acknowledged by the stroke team, by telephone on 12/29/2017 11:04 PM. Signed: Yessi Grewal MD Report Verified Date/Time: 12/29/2017 23:04:35 Reading Location: [address] Reading Room CARDIOGRAM REPORT - SCAN (12/29/2017 6:20 PM)2D Echo W/Doppler(CW/PW/Color ) (12/29/2017 10:27 AM) Component Value Ref Range Ejection Fraction Specimen Performing Laboratory [facility] Narrative Transthoracic Echocardiography Report (TTE) Demographics Patient Name JOSE SOLANO Date of Study 12/29/2017 YUNIOR [id number] Male Visit Number [id number] Unknown [id number] Room Number 2254 Number Date of Birth1Referring Physician Nancy Nina Age67 year(s)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 Clinical History HGB 17.2 HCT 51.1 % Contrast Medium: Definity. Height: 69 inches Weight: 72.12 kg (159 lbs) BSA: 1.87 m^2 BMI: 23.48 kg/m^2 HR: 68 bpm BP: 140/88 mmHg Summary IV saline contrast injection was negative for a PFO (patent foramen ovale) at rest and post Valsalva . The left ventricle is chamber size (by PSLAX dimension) is normal (male - LVIDd 4.2-5.8cm) . Mild concentric LV hypertrophy. All of the LV segments contract normally . Global LV systolic function normal . Estimated LVEF by qualitative assessment is normal (55-60%) . Grade 1 diastolic dysfunction (impaired relaxation and low-normal LA pressure). Normal (cardiac index 2-3 L/min/m2) cardiac output state at rest is noted. Aortic root size (SInus of Valsalva diameter) is normal . Proximal ascending aorta size is normal . Previous Study No prior exam available for comparison. Signature Findings Left Ventricle The left ventricle is chamber size (by PSLAX dimension) is normal (male - LVIDd 4.2-5.8cm) . Mild concentric LV hypertrophy. All of the LV segments contract normally . Global LV systolic function normal . Estimated LVEF by qualitative assessment is normal (55-60%) . Grade 1 diastolic dysfunction (impaired relaxation and low-normal LA pressure). Normal (cardiac index 2-3 L/min/m2) cardiac output state at rest is noted. Left AtriumLA size is mildly enlarged (35-41 ml/m2) . Right VentricleThe right ventricular chamber size and systolic function are within normal limits. Right Atrium RA cavity size is normal . Atrial SeptumIV saline contrast injection was negative for a PFO (patent foramen ovale) at rest and post Valsalva . Aortic Valve Mild AoV cusp thickening. AoV cusp mobility is normal . Mitral Valve Mild MV leaflet thickening. Trace mitral regurgitation. Tricuspid ValveTV structure is normal. Unable to estimate peak systolic PA pressure; inadequate TR velocity signal. Pulmonic Valve Normal PV structure and function. AortaAortic root size (SInus of Valsalva diameter) is normal . Proximal ascending aorta size is normal . PericardiumNo significant pericardial effusion is visualized. IVC/SVC/PA/PV/PleuralThe right upper pulmonary vein (RUPV) is normal . The estimated RA pressure by IVC dynamics 0-5mmHg . Chambers/Structures Left Atrium LA Volume: 69.89 mlLA Area: 22.7 cm^2 LA Vol. Index: 37 ml/m^2 Left Ventricle LVIDd: 5.18 cmLVEDV:142.98 ml LVIDs: 4.03 cmLVESV:65.35 ml LV Septum Diastolic: 1.17 cmLVEF 2D Cube: 59.1 % LV PW Diastolic: 1.3 cm LV FS: 22.2 % LVOT Diameter: 2.16 cm LVEF: 54.3 % Right Ventricle TAPSE: 2.69 cm Aorta Ao Root S of Roxanne.: 3.48 cmAscending Aorta: 3.08 cm Doppler/Quantitative Measurements Mitral Valve MV Peak E-Wave: 0.79 m/sMV Peak A-Wave: 0.92 m/s P1/2t: 60.9 msecE/A Ratio: 0.86 Peak Gradient: 2.51 mmHg Deceleration Time: 226.5 msec MV Area (PHT): 3.61 cm^2 MV Chuy. Peak: Tissue Doppler E' Lateral Velocity: 0.08 m/s E/E': 9.9 Aortic Valve Peak Velocity: 1.26 m/sMean Velocity: 0.9 m/s Peak Gradient: 6.3 mmHgMean Gradient: 3.57 mmHg AV Area (continuity): 2.03 cm^2 AV VTI: 28.89 cm AV DVI: 0.55 LVOT Peak Velocity: 0.75 m/s Peak Gradient: 2.26 mmHg Mean Velocity: 0.5 m/sMean Gradient: 1.22 mmHg LVOT Diameter: 2.16 cmLVOT VTI: 15.98 cm LVOT Area: 3.66 cm^2LVOT SV:58.53 ml LVOT CO: 3.98 l/min LVOT CI: 2.13 l/min/m^2 Procedure Note Interface, External Ris In - 12/29/2017 5:31 PM CDT Transthoracic Echocardiography Report (TTE) Demographics Patient Name JOSE SOLANO Date of Study 12/29/2017 YUNIOR Gender Male Visit Number [id number] Race Unknown Room Number 2254 Number Date of 1950 Referring Physician Nancy Nina Age 67 year(s) 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 Clinical History HGB 17.2 HCT 51.1 % Contrast Medium: Definity. Height: 69 inches Weight: 72.12 kg (159 lbs) BSA: 1.87 m^2 BMI: 23.48 kg/m^2 HR: 68 bpm BP: 140/88 mmHg Summary IV saline contrast injection was negative for a PFO (patent foramen ovale) at rest and post Valsalva . The left ventricle is chamber size (by PSLAX dimension) is normal (male - LVIDd 4.2-5.8cm) . Mild concentric LV hypertrophy. All of the LV segments contract normally . Global LV systolic function normal . Estimated LVEF by qualitative assessment is normal (55-60%) . Grade 1 diastolic dysfunction (impaired relaxation and low-normal LA pressure). Normal (cardiac index 2-3 L/min/m2) cardiac output state at rest is noted. Aortic root size (SInus of Valsalva diameter) is normal . Proximal ascending aorta size is normal . Previous Study No prior exam available for comparison. Signature Findings Left Ventricle The left ventricle is chamber size (by PSLAX dimension) is normal (male - LVIDd 4.2-5.8cm) . Mild concentric LV hypertrophy. All of the LV segments contract normally . Global LV systolic function normal . Estimated LVEF by qualitative assessment is normal (55-60%) . Grade 1 diastolic dysfunction (impaired relaxation and low-normal LA pressure). Normal (cardiac index 2-3 L/min/m2) cardiac output state at rest is noted. Left Atrium LA size is mildly enlarged (35-41 ml/m2) . Right Ventricle The right ventricular chamber size and systolic function are within normal limits. Right Atrium RA cavity size is normal . Atrial Septum IV saline contrast injection was negative for a PFO (patent foramen ovale) at rest and post Valsalva . Aortic Valve Mild AoV cusp thickening. AoV cusp mobility is normal . Mitral Valve Mild MV leaflet thickening. Trace mitral regurgitation. Tricuspid Valve TV structure is normal. Unable to estimate peak systolic PA pressure; inadequate TR velocity signal. Pulmonic Valve Normal PV structure and function. Aorta Aortic root size (SInus of Valsalva diameter) is normal . Proximal ascending aorta size is normal . Pericardium No significant pericardial effusion is visualized. IVC/SVC/PA/PV/Pleural The right upper pulmonary vein (RUPV) is normal . The estimated RA pressure by IVC dynamics 0-5mmHg . Chambers/Structures Left Atrium LA Volume: 69.89 ml LA Area: 22.7 cm^2 LA Vol. Index: 37 ml/m^2 Left Ventricle LVIDd: 5.18 cm LVEDV:142.98 ml LVIDs: 4.03 cm LVESV:65.35 ml LV Septum Diastolic: 1.17 cm LVEF 2D Cube: 59.1 % LV PW Diastolic: 1.3 cm LV FS: 22.2 % LVOT Diameter: 2.16 cm LVEF: 54.3 % Right Ventricle TAPSE: 2.69 cm Aorta Ao Root S of Roxanne.: 3.48 cm Ascending Aorta: 3.08 cm Doppler/Quantitative Measurements Mitral Valve MV Peak E-Wave: 0.79 m/s MV Peak A-Wave: 0.92 m/s P1/2t: 60.9 msec E/A Ratio: 0.86 Peak Gradient: 2.51 mmHg Deceleration Time: 226.5 msec MV Area (PHT): 3.61 cm^2 MV Chuy. Peak: Tissue Doppler E' Lateral Velocity: 0.08 m/s E/E': 9.9 Aortic Valve Peak Velocity: 1.26 m/s Mean Velocity: 0.9 m/s Peak Gradient: 6.3 mmHg Mean Gradient: 3.57 mmHg AV Area (continuity): 2.03 cm^2 AV VTI: 28.89 cm AV DVI: 0.55 LVOT Peak Velocity: 0.75 m/s Peak Gradient: 2.26 mmHg Mean Velocity: 0.5 m/s Mean Gradient: 1.22 mmHg LVOT Diameter: 2.16 cm LVOT VTI: 15.98 cm LVOT Area: 3.66 cm^2 LVOT SV:58.53 ml LVOT CO: 3.98 l/min LVOT CI: 2.13 l/min/m^2 Hemoglobin A1c (12/29/2017 1:33 AM) Component Value Ref Range Hemoglobin A1C 8.3 (H) 4.3 - 6.1 % Specimen Performing Laboratory Blood [address] [address] Troponin I (12/29/2017 1:24 AM)Only the most recent of2 resultswithin the time period is included. Component Value Ref Range Troponin I 0.01 0.00 - 0.03 ng/mL Specimen Performing Laboratory Blood [address] [address] Narrative Troponin I (TnI) levels must be interpreted [...] failure, acidosis, acute neurological disease, and persistent tachyarrhythmia. Lipid panel (12/29/2017 1:24 AM)Only the most recent of2 resultswithin the time period is included. Component Value Ref Range Triglycerides 100 mg/dL Cholesterol 147 mg/dL HDL 31 mg/dL LDL Calculated 96 mg/dL Specimen Performing Laboratory Blood [facility] [address] [address] Narrative Triglyceride Reference Range: Low Risk <150 [id number] High Risk 200-499 Very High Risk>=500 Cholesterol Reference Range: Low Risk <200 [id number] High Risk>240 HDL Cholesterol Reference Range: Low Risk >=60 High Risk <40 LDL Cholesterol Reference Range: Optimal<100 Near [id number] Very High >=190 XR chest 1 view portable / bedside (12/28/2017 3:10 PM) Specimen Performing Laboratory GE RIS Narrative FINAL REPORT History: Shortness of breath Comparison: None Findings: 4 mm calcified granuloma at the right lung apex. Lungs otherwise clear. No pleural effusions or pneumothorax. The heart shadow is normal in size. The thoracic aorta is mildly tortuous. Degenerative and hypertrophic changes are present in the spine. There are surgical clips in the abdomen. Impression: No evidence of acute cardiopulmonary disease. Signed: Nunu Swenson MD Report Verified Date/Time:12/28/2017 16:54:45 Reading Location: [address] Transitional Reading Room Procedure Note Interface, External Ris In - 12/28/2017 6:43 PM CDT FINAL REPORT History: Shortness of breath Comparison: None Findings: 4 mm calcified granuloma at the right lung apex. Lungs otherwise clear. No pleural effusions or pneumothorax. The heart shadow is normal in size. The thoracic aorta is mildly tortuous. Degenerative and hypertrophic changes are present in the spine. There are surgical clips in the abdomen. Impression: No evidence of acute cardiopulmonary disease. Signed: Nunu Swenson MD Report Verified Date/Time: 12/28/2017 16:54:45 Reading Location: [facility]013 Transitional Reading Room Vitamin B12 and Folate (12/28/2017 1:00 PM) Component Value Ref Range Vitamin B12 452 213 - 816 pg/mL Folate 13.1 >=7.0 ng/mL Specimen Performing Laboratory Blood - Arm, [address] [address] TSH/Free T4 If Indicated (12/28/2017 1:00 PM) Component Value Ref Range TSH 1.27 0.35 - 4.94 uIU/mL Specimen Performing Laboratory Blood - Arm, [address] [address] C-Reactive Protein (12/28/2017 1:00 PM) Component Value Ref Range CRP 0.52 (H) 0.00 - 0.50 mg/dL Specimen Performing Laboratory Blood - Arm, [address] [address] CBC with platelet count + automated diff (12/28/2017 1:00 PM) Component Value Ref Range WBC 8.5 3.5 - 10.5 K/L RBC 5.45 4.63 - 6.08 M/L Hemoglobin 17.2 13.7 - 17.5 GM/DL Hematocrit 51.1 (H) 40.1 - 51.0 % MCV 93.8 (H) 79.0 - 92.2 fL MCH 31.6 25.7 - 32.2 pg MCHC 33.7 32.3 - 36.5 GM/DL RDW 12.8 11.6 - 14.4 % Platelets 321 150 - 450 K/CU MM MPV 9.6 9.4 - 12.4 fL nRBC 0 0 - 0 /100 WBC % Neutros 44 % % Lymphs 42 % % Monos 11 % % Eos 2 % % Baso 1 % # Neutros 3.75 1.78 - 5.38 K/L # Lymphs 3.59 (H) 1.32 - 3.57 K/L # Monos 0.90 (H) 0.30 - 0.82 K/L # Eos 0.20 0.04 - 0.54 K/L # Baso 0.06 0.01 - 0.08 K/L Immature Granulocytes-Relative 0 0 - 1 % Specimen Performing Laboratory Blood - Arm, [address] [address] Prothrombin time/INR (12/28/2017 1:00 PM) Component Value Ref Range Protime 13.9 11.7 - 14.7 seconds INR 1.1 <=5.9 Specimen Performing Laboratory Blood - Arm, [address] [address] Narrative RECOMMENDED COUMADIN/WARFARIN INR THERAPY RANGES STANDARD DOSE: 2.0 - 3.0 Includes: PROPHYLAXIS for venous thrombosis, systemic embolization; TREATMENT for venous thrombosis and/or pulmonary embolus. HIGH RISK: Target INR is 2.5-3.5 for patients with mechanical heart valves. CBC (Hemogram only) (12/28/2017 1:00 PM) Component Value Ref Range WBC 8.5 3.5 - 10.5 K/L RBC 5.45 4.63 - 6.08 M/L Hemoglobin 17.2 13.7 - 17.5 GM/DL Hematocrit 51.1 (H) 40.1 - 51.0 % MCV 93.8 (H) 79.0 - 92.2 fL MCH 31.6 25.7 - 32.2 pg MCHC 33.7 32.3 - 36.5 GM/DL RDW 12.8 11.6 - 14.4 % Platelets 321 150 - 450 K/CU MM MPV 9.6 9.4 - 12.4 fL nRBC 0 0 - 0 /100 WBC Specimen Performing Laboratory Blood - Arm, [address] [address] CBC with platelet count + automated diff (12/28/2017 1:00 PM) Specimen Performing Laboratory Blood Narrative The following orders were created for panel order CBC with platelet count + automated diff. Procedure Abnormality Status --------- ------ CBC with platelet count ...[[id number]]AbnormalFinal result Please view results for these tests on the individual orders. Phosphorus (12/28/2017 1:00 PM) Component Value Ref Range Phosphorus 3.9 2.3 - 4.7 mg/dL Specimen Performing Laboratory Blood - Arm, [address] [address] Magnesium (12/28/2017 1:00 PM) Component Value Ref Range Magnesium 2.0 1.6 - 2.6 mg/dL Specimen Performing Laboratory Blood - Arm, Right [address] [address] Comprehensive metabolic panel (12/28/2017 1:00 PM) Component Value Ref Range Protein, Total 7.3 6.0 - 8.3 gm/dL Albumin 3.8 3.5 - 5.0 g/dL Alkaline Phosphatase 98 40 - 150 U/L Total Bilirubin 0.5 0.2 - 1.2 mg/dL Sodium 131 (L) 136 - 145 meq/L Potassium 4.2 3.5 - 5.1 meq/L Chloride 99 98 - 107 meq/L CO2 26 22 - 29 meq/L BUN 11 7 - 21 mg/dL Creatinine 0.82 0.57 - 1.25 mg/dL Glucose 74 70 - 105 mg/dL Calcium 9.3 8.4 - 10.2 mg/dL AST 16 5 - 34 U/L ALT 14 6 - 55 U/L EGFR 94Comment: ESTIMATED GFR IS NOT ACCURATE mL/min/1.73 sq m CREATININE CLEARANCE IN PREDICTING GLOMERULAR FILTRATION RATE. ESTIMATED GFR IS NOT APPLICABLE FOR DIALYSIS PATIENTS. Specimen Performing Laboratory Blood - Arm, Right [address] [address] after 01/25/2017
[2018-01-26 23:16] LABS: Absolute Lymphocytes (CBC) 3.6 K/uL (0.7-4.9); Absolute Monocytes 1.3 K/uL (0.1-1.3); Absolute Neutrophil 5.6 K/uL (1.8-8.0); Basophils % 0.9 % (0-1.3); Eosinophils % 2.9 % (0-4.4); Hematocrit 46.3 % (39.6-49.0); MCH 32.8 pg (27.0-35.0); MCV 94.5 fL (80-100); Protime INR 1.03
[2018-01-26 23:55] LABS: ALT/SGPT 25 U/L (12-78); AST/SGOT 19 U/L (15-37); Albumin 3.3 g/dL (3.4-5.0); Alkaline Phosphatase 109 U/L (45-117); BUN Blood Urea Nitrogen 15 mg/dL (7-18); Bicarbonate 28 mmol/L (21-32); Bilirubin Direct 0.1 mg/dL (0-0.2); Bilirubin Total 0.3 mg/dL (0.2-1.0); Glucose Level 168 mg/dL (74-106); Magnesium 1.9 mg/dL (1.8-2.4); NT PRO-BNP 184 pg/mL (<125); Protein, Total 7.4 g/dL (6.4-8.2); Sodium Level 133 mmol/L (136-145); Troponin (Emerg Dept Use Only) < 0.02 ng/mL (0.0-0.045)
--- NOTE | 2018-01-27 00:17 | ER ---
Nurse's Notes [facility] Name: Jose Benson Age: 67 yrs Sex: Male : 1950 Arrival Date: 01/26/2018 Time: 22:36 Bed 3 Private MD: Diagnosis: Seizure disorder Presentation: 01/26 22:47 Presenting complaint: states: Patient had seizure about an hour ago, hx of lp1 seizures; Main complaint of high blood pressure of 190/120 at home, refused to be transported by ambulance; Patient states feeling better just exhausted. Transition of care: patient was not received from another setting of care. Onset of symptoms was January 26, 2018 at 22:00. Risk Assessment: Do you want to hurt yourself or someone else? Patient reports no desire to harm self or others. Initial Sepsis Screen: Does the patient meet any 2 criteria? No. Patient's initial sepsis screen is negative. Does the patient have a suspected source of infection? No. Patient's initial sepsis screen is negative. Care prior to arrival: None. 22:47 Method Of Arrival: Wheelchair lp1 22:47 Acuity: DANDY 3 lp1 Historical: - Allergies: 22:54 No Known Allergies; lp1 - Home Meds: 22:54 gabapentin Oral [Active]; lisinopril 40 mg Oral tab 1 tab once daily [Active]; lp1 Metformin Oral [Active]; Toujeo SoloStar subcutaneous [Active]; Aspirin Oral [Active]; - PMHx: 22:54 Diabetes - IDDM; Hypertension; neuropathy; CVA x6; Seizures; Hyperlipidemia; lp1 - PSHx: 22:54 Kidney removal; spleenectomy; lp1 - Immunization history:: Adult Immunizations up to date. - Social history:: Smoking status: Patient uses tobacco products, cigars. - Ebola Screening: : No symptoms or risks identified at this time. Screenin:55 Abuse screen: Denies threats or abuse. Denies injuries from another. Nutritional lp1 screening: No deficits noted. Tuberculosis screening: No symptoms or risk factors identified. Fall Risk Total Williamson Fall Scale indicates High Risk Score (45 or more points). Fall prevention measures have been instituted. Side Rails Up X 2 As available patient and family educated on Fall Prevention Program and Strategies. Assessment: 23:08 General: Appears in no apparent distress. Behavior is appropriate for age. Pain: Denies lp1 pain. Neuro: Level of Consciousness is awake, alert, obeys commands, Oriented to person, place, time, situation, Gait is steady, Speech is normal, Pupils are PERRLA, Patient has hx of previous CVA with left leg weakness. Reports Seizure, hx of seizures. Cardiovascular: Patient's skin is warm and dry. Respiratory: Respiratory effort is even, unlabored, Respiratory pattern is regular, symmetrical, Breath sounds are clear bilaterally. GI: No signs and/or symptoms were reported involving the gastrointestinal system. : No signs and/or symptoms were reported regarding the genitourinary system. EENT: No signs and/or symptoms were reported regarding the EENT system. Derm: Skin is pink, warm \T\ dry. Musculoskeletal: Circulation, motion, and sensation intact. 01/27 00:30 Reassessment: Patient appears in no apparent distress at this time. Patient and/or lp1 family updated on plan of care and expected duration. Pain level reassessed. Patient is alert, oriented x 3, equal unlabored respirations, skin warm/dry/pink. Patient denies pain at this time. Patient states feeling better. Patient states symptoms have improved. Vital Signs: 01/26 22:51 BP 164 / 94; Pulse 71; Resp 14; Pulse Ox 98% on R/A; Weight 72.57 kg; Height 5 ft. 9 lp1 in. (175.26 cm); Pain 0/10; 23:15 Temp 98.5(O); lp1 01/27 00:30 BP 158 / 78; Pulse 72; Resp 17; Pulse Ox 98% on R/A; lp1 01/26 22:51 Body Mass Index 23.63 (72.57 kg, 175.26 cm) lp1 Mclain Coma Score: 01/26 23:15 Eye Response: spontaneous(4). Verbal Response: oriented(5). Motor Response: obeys lp1 commands(6). Total: 15. ED Course: 22:36 Patient arrived in ED. ag3 22:[address] MD is Attending Physician. pkl 22:47 Sari Reyes, RN is Primary Nurse. lp1 22:51 Triage completed. lp1 22:51 Arm band placed on left wrist. lp1 22:54 Patient has correct armband on for positive identification. Placed in gown. Bed in low lp1 position. Call light in reach. traffic monitor specialist on. Pulse ox on. NIBP on. 22:55 Inserted saline lock: 20 gauge in right antecubital area, using aseptic technique. ao Blood collected. 23:[address] via wheelchair. kw1 23:27 XRAY Chest (1 view) In Process Unspecified. EDMS 23:30 CT Head Brain wo Cont In Process Unspecified. EDMS 23:31 CT completed. Patient tolerated procedure well. Patient moved back from CT. kw1 10 00:52 No provider procedures requiring assistance completed. IV discontinued, No lp1 redness/swelling at site. Pressure dressing applied. Administered Medications: No medications were administered Outcome: 00:16 Discharge ordered by . pkramon 00:53 Discharged to home ambulatory, with family. lp1 00:53 Condition: good 00:53 Discharge instructions given to patient, Instructed on discharge instructions, follow up and referral plans. Demonstrated understanding of instructions, follow-up care. 00:53 Patient left the ED. lp1 Signatures: Dispatcher [employer] EDJovan Su MD MD pkl Pena, Laura, RN RN lp1 Manny Willams, RN RN Rika Villegas kw1 Shilpi Bansal 3
--- NOTE | 2018-01-27 00:17 | EDPHYS ---
Physician Documentation [facility] Name: Jose Benson Age: 67 yrs Sex: Male : 1950 Arrival Date: 01/26/2018 Time: 22:36 Bed 3 Private MD: ED Physician Jovan Street HPI: 01/26 23:01 This 67 yrs old Male presents to ER via Wheelchair with complaints of Arm pkl Pain. 23:01 The patient presents after having a single isolated seizure, that lasted 1 minute(s). pkl Character of seizure(s): Loss of consciousness: the patient did not lose consciousness, Motor activity: generalized, both upper extrermities. Seizure onset: just prior to arrival. Context: the seizure(s) was witnessed, by family. Associated injury: The patient did not suffer any apparent associated injury. Patient had stroke 1 month ago. Historical: - Allergies: 22:54 No Known Allergies; lp1 - Home Meds: 22:54 gabapentin Oral [Active]; lisinopril 40 mg Oral tab 1 tab once daily [Active]; lp1 Metformin Oral [Active]; Toujeo SoloStar subcutaneous [Active]; Aspirin Oral [Active]; - PMHx: 22:54 Diabetes - IDDM; Hypertension; neuropathy; CVA x6; Seizures; Hyperlipidemia; lp1 - PSHx: 22:54 Kidney removal; spleenectomy; lp1 - Immunization history:: Adult Immunizations up to date. - Social history:: Smoking status: Patient uses tobacco products, cigars. - Ebola Screening: : No symptoms or risks identified at this time. ROS: 23:01 Eyes: Negative for injury, pain, redness, and discharge, ENT: Negative for injury, pkl pain, and discharge, Neck: Negative for injury, pain, and swelling, Cardiovascular: Negative for chest pain, palpitations, and edema, Respiratory: Negative for shortness of breath, cough, wheezing, and pleuritic chest pain, Abdomen/GI: Negative for abdominal pain, nausea, vomiting, diarrhea, and constipation, Back: Negative for injury and pain, : Negative for injury, bleeding, discharge, and swelling, MS/Extremity: Negative for injury and deformity, Skin: Negative for injury, rash, and discoloration. 23:01 Neuro: Positive for seizure activity. Exam: 23:01 Head/Face: Normocephalic, atraumatic. Eyes: Pupils equal round and reactive to light, pkl extra-ocular motions intact. Lids and lashes normal. Conjunctiva and sclera are non-icteric and not injected. Cornea within normal limits. Periorbital areas with no swelling, redness, or edema. ENT: Nares patent. No nasal discharge, no septal abnormalities noted. Tympanic membranes are normal and external auditory canals are clear. Oropharynx with no redness, swelling, or masses, exudates, or evidence of obstruction, uvula midline. Mucous membranes moist. Neck: Trachea midline, no thyromegaly or masses palpated, and no cervical lymphadenopathy. Supple, full range of motion without nuchal rigidity, or vertebral point tenderness. No Meningismus. Chest/axilla: Normal chest wall appearance and motion. Nontender with no deformity. No lesions are appreciated. Cardiovascular: Regular rate and rhythm with a normal S1 and S2. No gallops, murmurs, or rubs. Normal PMI, no JVD. No pulse deficits. Respiratory: Lungs have equal breath sounds bilaterally, clear to auscultation and percussion. No rales, rhonchi or wheezes noted. No increased work of breathing, no retractions or nasal flaring. Abdomen/GI: Soft, non-tender, with normal bowel sounds. No distension or tympany. No guarding or rebound. No evidence of tenderness throughout. Back: No spinal tenderness. No costovertebral tenderness. Full range of motion. Skin: Warm, dry with normal turgor. Normal color with no rashes, no lesions, and no evidence of cellulitis. MS/ Extremity: Pulses equal, no cyanosis. Neurovascular intact. Full, normal range of motion. 23:01 Neuro: Orientation: is normal, Mentation: is normal, Memory: is normal, Cranial nerves: grossly normal, Cerebellar function: normal finger to nose testing, heel to rinaldi testing is normal, Motor: strength is 5/5 in all extremities, Sensation: is normal, Gait: is steady. Vital Signs: 22:51 BP 164 / 94; Pulse 71; Resp 14; Pulse Ox 98% on R/A; Weight 72.57 kg; Height 5 ft. 9 lp1 in. (175.26 cm); Pain 0/10; 23:15 Temp 98.5(O); lp1 10/02 00:30 BP 158 / 78; Pulse 72; Resp 17; Pulse Ox 98% on R/A; lp1 01/26 22:51 Body Mass Index 23.63 (72.57 kg, 175.26 cm) lp1 Omega Coma Score: 01/26 23:15 Eye Response: spontaneous(4). Verbal Response: oriented(5). Motor Response: obeys lp1 commands(6). Total: 15. MDM: 22:46 Patient medically screened. pkl 01/27 00:15 Data reviewed: vital signs, nurses notes, lab test result(s), EKG, radiologic studies, pkl CT scan. ED course: Patient feeling better. No distress noted. 01/26 23:00 Order name: Basic Metabolic Panel; Complete Time: 00:02 pkl 01/26 23:00 Order name: CBC with Diff; Complete Time: 23:30 pkl 01/26 23:00 Order name: LFT's; Complete Time: 00:02 pkl 01/26 23:00 Order name: Magnesium; Complete Time: 00:02 pkl 01/26 23:00 Order name: NT PRO-BNP; Complete Time: 00:02 pkl 01/26 23:00 Order name: PT-INR; Complete Time: 23:30 pkl 01/26 23:00 Order name: Troponin (emerg Dept Use Only); Complete Time: 00:02 pkl 01/26 23:00 Order name: XRAY Chest (1 view) pkl 01/26 23:00 Order name: EKG; Complete Time: 23:00 pkl 01/26 23:00 Order name: Cardiac monitoring; Complete Time: 23:10 pkl 01/26 23:00 Order name: EKG - Nurse/Tech; Complete Time: 23:10 pkl 01/26 23:00 Order name: IV Saline Lock; Complete Time: 23:10 pkl 01/26 23:00 Order name: Labs collected and sent; Complete Time: 23:10 pkl 01/26 23:00 Order name: CT Head Brain wo Cont pkl 01/26 23:00 Order name: O2 Per Protocol; Complete Time: 23:10 pkl 01/26 23:00 Order name: O2 Sat Monitoring; Complete Time: 23:11 pkl Administered Medications: No medications were administered Disposition: 01/27/18 00:16 Discharged to Home. Impression: Seizure disorder. - Condition is Stable. - Medication Reconciliation Form, Thank You Letter, Antibiotic Education, Prescription Opioid Use form. - Follow up: Private Physician; When: 2 - 3 days; Reason: Re-evaluation by your physician. - Problem is new. - Symptoms have improved. Signatures: Dispatcher [employer] EDMS Jovan Street MD MD pkl Sari Reyes RN RN lp1 Corrections: (The following items were deleted from the chart) 00:53 00:16 01/27/2018 00:16 Discharged to Home. Impression: Seizure disorder. Condition is lp1 Stable. Forms are Medication Reconciliation Form, Thank You Letter, Antibiotic Education, Prescription Opioid Use. Follow up: Private Physician; When: 2 - 3 days; Reason: Re-evaluation by your physician. Problem is new. Symptoms have improved. pkl
--- NOTE | 2018-01-27 06:21 | EKG ---
Test Date: 2018-01-26 Test Time: 22:48:49 Imaging Account Manager: SILVINA MEASUREMENT RESULTS: Intervals: Rate: 67 MI: 170 QRSD: 124 QT: 386 QTc: 407 [place]: P: 59 MI: 170 QRS: 41 T: 78 INTERPRETIVE STATEMENTS: Normal sinus rhythm Nonspecific intraventricular conduction delay Nonspecific T wave abnormality Abnormal ECG Compared to ECG 12/28/2017 08:36:12 Intraventricular conduction delay now present T-wave abnormality still present Electronically Signed On 01-27-18 06:20:21 CDT by Froy Pearce
--- NOTE | 2018-01-27 08:35 | RAD REPORT ---
EXAM DESCRIPTION: Itzel Single View01/26/2018 11:28 pm CLINICAL HISTORY: Seizure December 2017 COMPARISON: none FINDINGS: The lungs appear clear of acute infiltrate. The heart is normal size. What is presumed to be a shelter monitor overlies the left chest IMPRESSION: No acute abnormalities displayed
--- NOTE | 2018-01-27 08:56 | RAD REPORT ---
EXAM DESCRIPTION: CT - Head Brain Wo Cont - 01/27/2018 3:12 am CLINICAL HISTORY: Seizure COMPARISON: 12/28/2017 TECHNIQUE: Computed axial tomography of the head was obtained. IV contrast was not requested.A preli minary report was generated by [employer] and reviewed prior to this dictation All CT scans are performed using dose optimization technique as appropriate and may include automated exposure control or mA/KV adjustment according to patient size. FINDINGS: An intracranial bleed is not seen . The ventricles are normal in caliber. No extra-axial fluid collection is noted. Low-density within the left cerebrum is unchanged likely in dicating old infarction. Small low-density within the right parietal lobe also probably represents ol d infarction. Fluid within the sinuses/ mastoids is not seen. IMPRESSION: No acute intracranial abnormality is seen. If patient's symptoms persist MRI of the bra in would be recommended.
== END 2018-01-27 00:53 | disposition home or self-care (01) ==
LOC: ER 22:35
DX: G40.909 Epilepsy, unspecified, not intractable, without status epilepticus (principal); I10 Essential (primary) hypertension; E11.9 Type 2 diabetes mellitus without complications; E78.5 Hyperlipidemia, unspecified; Z79.82 Long term (current) use of aspirin; Z72.0 Tobacco use; Z79.4 Long term (current) use of insulin
CPT/HCPCS: 36415; 70450; 71045; 80048; 80076; 83735; 83880; 84484; 85025; 85610; 93005; 99285

== ENCOUNTER 2018-10-08 10:55 | Emergency (ER) | payer BC, OTHER ==
--- OUTSIDE RECORDS SUMMARY | 2018-10-08 11:06 | XMS REPORT ---
:1950 [facility] Address [address] [place] [address] Dr. Cortez [address] [place] [id number] Care Team Providers Name Role Phone ALISSA [...] (BEAKER) (test 79 mg/dL 70-110 TESTED AT [facility] [address] [facility] yzop=[id number]) [facility] [address] BASIC METABOLIC [id number] 05:19:00 Test Item Value Reference Range Comments SODIUM (BEAKER) (test 134 meq/L 136-145 ttsk=368) POTASSIUM (BEAKER) (test 3.8 meq/L 3.5-5.1 wlcf=791) CHLORIDE (BEAKER) (test 104 meq/L 98-107 znhx=231) CO2 (BEAKER) (test 23 meq/L 22-29 bzgy=056) BLOOD UREA NITROGEN 13 mg/dL 7-21 (BEAKER) (test raee=197) CREATININE (BEAKER) (test 0.66 mg/dL 0.57-1.25 ggxi=057) GLUCOSE RANDOM (BEAKER) 70 mg/dL 70-105 (test dowa=623) CALCIUM (BEAKER) (test 8.8 mg/dL 8.4-10.2 rdwz=946) EGFR (BEAKER) (test 121 mL/min/1.73 sq m ESTIMATED GFR IS NOT hnxm=7551) ACCURATE CREATININE CLEARANCE IN PREDICTING GLOMERULAR FILTRATION RATE. ESTIMATED GFR IS NOT APPLICABLE FOR DIALYSIS PATIENTS. MR, MRA, BRAIN, WITHOUT [id number] 23:04:00Reason for exam:-> Ischemic Stroke EvaluationFINAL REPORT CLINICAL HISTORY: StrokeIschemic Stroke Evaluation TECHNIQUE: MRI of the brain utilizing axial T2 , FLAIR, GRE, DWI; sagittal and coronal T1-weighted images.MRA of the head utilizing 3-D fhlf-gu-ncpryk technique, with 3-D reconstructions. MRA of the neck utilizing 2-D and 3-D mdje-ef-ldzmrs technique, with 3-D reconstructions. COMPARISON: None MRI [...] Grewal Verified Date/Time: 12/29/2017 23:04:35 Reading Location: [address] Transitional Reading Room MR, MRA, NECK, WITHOUT IV [id number] 23:04:00Reason for exam:->Ischemic Stroke EvaluationFINAL REPORT CLINICAL HISTORY: StrokeIschemic Stroke Evaluation TECHNIQUE: MRI of the brain utilizing axial T2, FLAIR, GRE, DWI; sagittal and coronal T1-weighted images.MRA of the head utilizing 3-D time-of- flight technique, with 3-D reconstructions. MRA of the neck utilizing 2-D and 3- D fxva-db-qsmteu technique, with 3-D reconstructions. COMPARISON: None MRI [...] Grewal Verified Date/Time: 12/29/2017 23:04:35 Reading Location: [address] Transitional Reading Room MR, BRAIN, WITHOUT [id number] 23:04:00Reason for exam:->Ischemic Stroke EvaluationFINAL REPORT CLINICAL HISTORY: StrokeIschemic Stroke Evaluation TECHNIQUE: MRI of the brain utilizing axial T2, FLAIR, GRE, DWI; sagittal and coronal T1-weighted images.MRA of the head utilizing 3-D time-of- flight technique, with 3-D reconstructions. MRA of the neck utilizing 2-D and 3- D dlau-ol-imquuy technique, with 3-D reconstructions. COMPARISON: None MRI [...] Grewal Verified Date/Time: 12/29/2017 23:04:35 Reading Location: [address] Reading Room POCT-GLUCOSE [id number] 21:28:00 Test Item Value Reference Range Comments POC-GLUCOSE METER (BEAKER) 136 mg/dL 70-110 TESTED AT [address] (test pgiq=1251) [place] [address] POCT-GLUCOSE [id number] 15:56:00 Test Item Value Reference Range Comments POC-GLUCOSE METER (BEAKER) 198 mg/dL 70-110 TESTED AT [address] (test tzij=7745) [place] [address] POCT-GLUCOSE [id number] 14:50:00 Test Item Value Reference Range Comments POC-GLUCOSE METER (BEAKER) 204 mg/dL 70-110 TESTED AT [address] (test lvmw=1589) [place] [address] POCT-GLUCOSE [id number] 12:16:00 Test Item Value Reference Range Comments POC-GLUCOSE METER (BEAKER) 127 mg/dL 70-110 TESTED AT [address] (test kqxl=5932) [place] [address] HEMOGLOBIN [id number] 10:57:00 Test Item Value Reference Range Comments HEMOGLOBIN A1C (BEAKER) (test gcun=401) 8.3 % 4.3-6.1 TROPONIN [id number] 02:04:00 Test Item Value Reference Range Comments TROPONIN I (BEAKER) (test gfbw=163) 0.01 ng/mL 0.00-0.03 Troponin I (TnI) levels [...] acidosis, acute neurological disease, and persistent tachyarrhythmia.LIPID [id number] 01:58:00 Test Item Value Reference Range Comments TRIGLYCERIDES (BEAKER) (test tgpc=977) 100 mg/dL CHOLESTEROL (BEAKER) (test cwpo=395) 147 mg/dL HDL CHOLESTEROL (BEAKER) (test usou=093) 31 mg/dL LDL CHOLESTEROL CALCULATED (BEAKER) (test 96 mg/dL fwal=619) Triglyceride Reference Range: Low Risk <150 Borderline 150- 199 High Risk 200-499 Very High Risk >=500Cholesterol Reference Range: Low Risk <200 Borderline 200-239 High Risk > 240HDL Cholesterol Reference Range: Low Risk >=60 High Risk <40LDL Cholesterol Reference Range: Optimal <100 Near Optimal 100-129 Borderline 130-159 High 160-189 Very High >=190BASIC METABOLIC [id number] 01:58:00 Test Item Value Reference Range Comments SODIUM (BEAKER) (test 132 meq/L 136-145 tdrv=355) POTASSIUM (BEAKER) (test 4.3 meq/L 3.5-5.1 fwhn=319) CHLORIDE (BEAKER) (test 102 meq/L 98-107 aepr=822) CO2 (BEAKER) (test 23 meq/L 22-29 uctk=084) BLOOD UREA NITROGEN 14 mg/dL 7-21 (BEAKER) (test gmfb=372) CREATININE (BEAKER) (test 0.82 mg/dL 0.57-1.25 ovxz=737) GLUCOSE RANDOM (BEAKER) 220 mg/dL 70-105 (test zjvr=479) CALCIUM (BEAKER) (test 8.6 mg/dL 8.4-10.2 zvpe=825) EGFR (BEAKER) (test 94 mL/min/1.73 sq m ESTIMATED GFR IS NOT apzf=1346) ACCURATE CREATININE CLEARANCE IN PREDICTING GLOMERULAR FILTRATION RATE. ESTIMATED GFR IS NOT APPLICABLE FOR DIALYSIS PATIENTS. POCT-GLUCOSE [id number] 20:50:00 Test Item Value Reference Range Comments POC-GLUCOSE METER (BEAKER) 266 mg/dL 70-110 TESTED AT [facility] [address] [facility] (test psoc=1240) [facility] [address] TROPONIN [id number] 18:56:00 Test Item Value Reference Range Comments TROPONIN I (BEAKER) (test eqop=343) 0.01 ng/mL 0.00-0.03 Troponin I (TnI) levels [...] and persistent tachyarrhythmia.RAD, CHEST, 1 VIEW, NON [id number] 16:54:00Reason for exam:->sobShould this be performed at [...] MDReport Verified Date/Time: 12/28/2017 16:54:45 Reading Location: [address] Reading Room TSH/FREE T4 IF [id number] 14:24:00 Test Item Value Reference Range Comments THYROID STIMULATING HORMONE (BEAKER) (test 1.27 uIU/mL 0.35-4.94 eqav=639) VITAMIN B12 AND [id number] 14:24:00 Test Item Value Reference Range Comments VITAMIN B12 (BEAKER) (test rbce=327) 452 pg/mL 213-816 FOLATE (BEAKER) (test siso=132) 13.1 ng/mL >=7.0 [id number] 13:51:00 Test Item Value Reference Range Comments PHOSPHORUS (BEAKER) (test xyex=832) 3.9 mg/dL 2.3-4.7 [id number] 13:51:00 Test Item Value Reference Range Comments MAGNESIUM (BEAKER) (test qvjv=710) 2.0 mg/dL 1.6-2.6 COMPREHENSIVE METABOLIC [id number] 13:51:00 Test Item Value Reference Range Comments TOTAL PROTEIN (BEAKER) 7.3 gm/dL 6.0-8.3 (test ibng=012) ALBUMIN (BEAKER) (test 3.8 g/dL 3.5-5.0 nrgx=8420) ALKALINE PHOSPHATASE 98 U/L 40-150 (BEAKER) (test foav=442) BILIRUBIN TOTAL (BEAKER) 0.5 mg/dL 0.2-1.2 (test ccfa=358) SODIUM (BEAKER) (test 131 meq/L 136-145 xemu=649) POTASSIUM (BEAKER) (test 4.2 meq/L 3.5-5.1 ovfk=628) CHLORIDE (BEAKER) (test 99 meq/L 98-107 lerc=099) CO2 (BEAKER) (test 26 meq/L 22-29 ykeo=653) BLOOD UREA NITROGEN 11 mg/dL 7-21 (BEAKER) (test jgqb=688) CREATININE (BEAKER) (test 0.82 mg/dL 0.57-1.25 ypqn=696) GLUCOSE RANDOM (BEAKER) 74 mg/dL 70-105 (test vfyt=338) CALCIUM (BEAKER) (test 9.3 mg/dL 8.4-10.2 ospk=302) AST (SGOT) (BEAKER) (test 16 U/L 5-34 frim=282) ALT (SGPT) (BEAKER) (test 14 U/L 6-55 lrfr=041) EGFR (BEAKER) (test 94 mL/min/1.73 sq m ESTIMATED GFR IS NOT xpvm=2895) ACCURATE CREATININE CLEARANCE IN PREDICTING GLOMERULAR FILTRATION RATE. ESTIMATED GFR IS NOT APPLICABLE FOR DIALYSIS PATIENTS. BASIC METABOLIC [id number] 13:51:00 Test Item Value Reference Range Comments SODIUM (BEAKER) (test 131 meq/L 136-145 dasg=649) POTASSIUM (BEAKER) (test 4.2 meq/L 3.5-5.1 utmy=409) CHLORIDE (BEAKER) (test 99 meq/L 98-107 xwgw=932) CO2 (BEAKER) (test 26 meq/L 22-29 ibiv=318) BLOOD UREA NITROGEN 11 mg/dL 7-21 (BEAKER) (test aswh=059) CREATININE (BEAKER) (test 0.82 mg/dL 0.57-1.25 lvup=117) GLUCOSE RANDOM (BEAKER) 74 mg/dL 70-105 (test yjqz=609) CALCIUM (BEAKER) (test 9.3 mg/dL 8.4-10.2 ruxn=013) EGFR (BEAKER) (test 94 mL/min/1.73 sq m ESTIMATED GFR IS NOT kzjn=3382) ACCURATE CREATININE CLEARANCE IN PREDICTING GLOMERULAR FILTRATION RATE. ESTIMATED GFR IS NOT APPLICABLE FOR DIALYSIS PATIENTS. LIPID [id number] 13:51:00 Test Item Value Reference Range Comments TRIGLYCERIDES (BEAKER) (test ybri=947) 41 mg/dL CHOLESTEROL (BEAKER) (test csuv=891) 160 mg/dL HDL CHOLESTEROL (BEAKER) (test aulc=419) 37 mg/dL LDL CHOLESTEROL CALCULATED (BEAKER) (test 115 mg/dL esnb=482) Triglyceride Reference Range: Low Risk <150 Borderline 150- 199 High Risk 200-499 Very High Risk >=500Cholesterol Reference Range: Low Risk <200 Borderline 200-239 High Risk > 240HDL Cholesterol Reference Range: Low Risk >=60 High Risk <40LDL Cholesterol Reference Range: Optimal <100 Near Optimal 100-129 Borderline 130-159 High 160-189 Very High >=190C-REACTIVE [id number] 13:51:00 Test Item Value Reference Range Comments C-REACTIVE PROTEIN (BEAKER) (test ilyw=986) 0.52 mg/dL 0.00-0.50 PROTHROMBIN TIME/[id number] 13:33:00 Test Item Value Reference Range Comments PROTIME (BEAKER) (test zngd=019) 13.9 seconds 11.7-14.7 INR (BEAKER) (test fmbc=451) 1.1 <=5.9 RECOMMENDED COUMADIN/WARFARIN INR THERAPY RANGESSTANDARD DOSE: 2.0 - 3.0 Includes: PROPHYLAXIS forvenous thrombosis, systemic embolization; TREATMENT for venous thrombosis and/or pulmonary embolus.HIGH RISK: Target INR is 2.5-3.5 for patients with mechanical heart valves.CBC (HEMOGRAM ONLY)2017-12-28 13:24:00 Test Item Value Reference Range Comments WHITE BLOOD CELL COUNT (BEAKER) (test omug=332) 8.5 K/ L 3.5-10.5 RED BLOOD CELL COUNT (BEAKER) (test wash=184) 5.45 M/ L 4.63-6.08 HEMOGLOBIN (BEAKER) (test rhnn=921) 17.2 GM/DL 13.7-17.5 HEMATOCRIT (BEAKER) (test vmgh=439) 51.1 % 40.1-51.0 MEAN CORPUSCULAR VOLUME (BEAKER) (test lmtd=591) 93.8 fL 79.0-92.2 MEAN CORPUSCULAR HEMOGLOBIN (BEAKER) (test 31.6 pg 25.7-32.2 wzdk=858) MEAN CORPUSCULAR HEMOGLOBIN CONC (BEAKER) (test 33.7 GM/DL 32.3-36.5 cjjd=178) RED CELL DISTRIBUTION WIDTH (BEAKER) (test 12.8 % 11.6-14.4 lgvk=058) PLATELET COUNT (BEAKER) (test pumb=906) 321 K/CU MM 150-450 MEAN PLATELET VOLUME (BEAKER) (test uuxx=830) 9.6 fL 9.4-12.4 NUCLEATED RED BLOOD CELLS (BEAKER) (test 0 /100 WBC 0-0 pbty=871) CBC W/PLT COUNT & AUTO [id number] 13:24:00 Test Item Value Reference Range Comments WHITE BLOOD CELL COUNT (BEAKER) (test jaxi=084) 8.5 K/ L 3.5-10.5 RED BLOOD CELL COUNT (BEAKER) (test rhie=541) 5.45 M/ L 4.63-6.08 HEMOGLOBIN (BEAKER) (test ocrr=104) 17.2 GM/DL 13.7-17.5 HEMATOCRIT (BEAKER) (test qvle=451) 51.1 % 40.1-51.0 MEAN CORPUSCULAR VOLUME (BEAKER) (test tuyi=312) 93.8 fL 79.0-92.2 MEAN CORPUSCULAR HEMOGLOBIN (BEAKER) (test 31.6 pg 25.7-32.2 ejwi=102) MEAN CORPUSCULAR HEMOGLOBIN CONC (BEAKER) (test 33.7 GM/DL 32.3-36.5 qtqm=344) RED CELL DISTRIBUTION WIDTH (BEAKER) (test 12.8 % 11.6-14.4 hrqf=982) PLATELET COUNT (BEAKER) (test rsxx=536) 321 K/CU MM 150-450 MEAN PLATELET VOLUME (BEAKER) (test tbmj=415) 9.6 fL 9.4-12.4 NUCLEATED RED BLOOD CELLS (BEAKER) (test 0 /100 WBC 0-0 wigr=994) NEUTROPHILS RELATIVE PERCENT (BEAKER) (test 44 % frjf=791) LYMPHOCYTES RELATIVE PERCENT (BEAKER) (test 42 % pkrh=052) MONOCYTES RELATIVE PERCENT (BEAKER) (test 11 % etsx=657) EOSINOPHILS RELATIVE PERCENT (BEAKER) (test 2 % rtvo=502) BASOPHILS RELATIVE PERCENT (BEAKER) (test 1 % fuli=951) NEUTROPHILS ABSOLUTE COUNT (BEAKER) (test 3.75 K/ L 1.78-5.38 hsog=004) LYMPHOCYTES ABSOLUTE COUNT (BEAKER) (test 3.59 K/ L 1.32-3.57 hllp=012) MONOCYTES ABSOLUTE COUNT (BEAKER) (test 0.90 K/ L 0.30-0.82 atkr=641) EOSINOPHILS ABSOLUTE COUNT (BEAKER) (test 0.20 K/ L 0.04-0.54 jrvk=941) BASOPHILS ABSOLUTE COUNT (BEAKER) (test 0.06 K/ L 0.01-0.08 jfwa=711) IMMATURE GRANULOCYTES-RELATIVE PERCENT (BEAKER) 0 % 0-1 (test wxve=4285) POCT-GLUCOSE [id number] 11:56:00 Test Item Value Reference Range Comments POC-GLUCOSE METER (BEAKER) 93 mg/dL 70-110 TESTED AT [facility] [address] [facility] (test omnr=1087) [facility] [address]
--- OUTSIDE RECORDS SUMMARY | 2018-10-08 11:06 | XMS REPORT | Clinical Summary ---
:1950 Author Organization [employer] Address [address] [place] [address] Care Team Providers Name Role Phone Juan Coles Primary Care Provider Allergies No Known Allergies Medications Medication Sig Dispensed Refills Start End Date Status Date metFORMIN Take 1,000 mg by 0 Active (GLUCOPHAGE) 1000 mouth 2 (two) times MG tablet daily before meals. lisinopril Take 40 mg by mouth 0 Active (PRINIVIL,ZESTRIL daily. ) 40 MG tablet gabapentin Take 300 mg by 0 Active (NEURONTIN) 300 mouth 2 (two) times MG daily. capsuleIndication s: Neuropathic Pain, Partial Epilepsy Treatment Adjunct Missing or Inject 30 Units 0 Active Non-Formulary subcutaneously 2 8 Medication (two) times daily Pt own toujeo . aspirin 81 MG Take 1 tablet (81 [...] tablet daily. insulin glargine Inject 30 Units 0 12/29/19 Discontinued (LANTUS) 100 subcutaneously 18 unit/mL injection every morning Use as directed . ALPRAZolam Take 1 tablet (0.5 30 tablet 0 12/31/19 Discontinued (XANAX) 0.5 MG mg total) by mouth 8 18 tablet every night as needed for Anxiety for up to 30 days. Max Daily Amount: 0.5 mg ALPRAZolam Take 1 tablet (0.5 30 tablet 0 01/30/20 (XANAX) 0.5 MG mg total) by mouth 8 18 tablet every night as needed for Anxiety for up to 30 days. Max Daily Amount: 0.5 mg mINOCYCLine Take 1 capsule (100 20 capsule 0 01/10/20 (MINOCIN,DYNACIN) mg total) by mouth 8 18 100 MG capsule every 12 (twelve) hours for 10 days. 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 Last Filed Vital Signs Vital Sign Reading [...] CDT Plan of Treatment Not on file Procedures Procedure Name Priority Date/Time Associated Diagnosis Comments RHYTHM STRIP - SCAN 01/01/2018 12:32 PM CDT ECG 12-LEAD Routine 12/30/2017 12:27 PM CDT Procedure Note - Interface, External Ris In - 12/30/2017 12:42 PM CDT Ventricular Rate 66 BPM Atrial Rate 66 BPM P-R Interval 166 ms QRS Duration 122 ms Q-T Interval 404 ms QTC Calculation(Bazett) 423 ms P Concord 63 degrees R Concord 34 degrees T Concord 98 degrees Normal sinus rhythm Non-specific intra-ventricular conduction delay T wave abnormality, consider lateral ischemia Abnormal ECG No previous ECGs available ECG 12-LEAD STAT 12/30/2017 12:27 PM CDT POCT-GLUCOSE METER Routine 12/30/2017 7:32 AM CDT BASIC METABOLIC PANEL (7) Routine 12/30/2017 4:43 AM CDT POCT-GLUCOSE METER Routine 12/29/2017 9:14 PM CDT MR BRAIN WITHOUT IV CONTRAST Routine 12/29/2017 7:01 PM CDT MR MRA NECK WITHOUT IV Routine 12/29/2017 7:01 PM CDT Results for this CONTRAST procedure are in the results section. MR MRA HEAD WITHOUT CONTRAST Routine 12/29/2017 7:01 PM CDT ECHOCARDIOGRAM REPORT - SCAN 12/29/2017 6:20 PM CDT POCT-GLUCOSE METER Routine 12/29/2017 3:54 PM CDT POCT-GLUCOSE METER Routine 12/29/2017 2:48 PM CDT POCT-GLUCOSE METER Routine 12/29/2017 12:10 PM CDT 2D ECHO W/ DOPPLER Routine 12/29/2017 10:27 AM CDT Results for this (CW/PW/COLOR) procedure are in the results section. HEMOGLOBIN A1C Routine 12/29/2017 1:33 AM CDT BASIC METABOLIC PANEL (7) Routine 12/29/2017 1:24 AM CDT TROPONIN I Routine 12/29/2017 1:24 AM CDT LIPID PANEL Routine 12/29/2017 1:24 AM CDT POCT-GLUCOSE METER Routine 12/28/2017 8:43 PM CDT TROPONIN I Routine 12/28/2017 6:10 PM CDT XR CHEST 1 VIEW Routine 12/28/2017 3:10 PM CDT Results for this PORTABLE/BEDSIDE procedure are in the results section. CBC W/PLT COUNT & AUTO Routine 12/28/2017 1:00 PM CDT Results for this DIFFERENTIAL procedure are in the results section. PROTHROMBIN TIME/INR Routine 12/28/2017 1:00 PM CDT COMPREHENSIVE METABOLIC Routine 12/28/2017 1:00 PM CDT Results for this PANEL procedure are in the results section. CBC W/PLT COUNT & AUTO Routine 12/28/2017 1:00 PM CDT Results for this DIFFERENTIAL procedure are in the results section. BASIC METABOLIC PANEL (7) Routine 12/28/2017 1:00 PM CDT PHOSPHORUS Routine 12/28/2017 1:00 PM CDT MAGNESIUM Routine 12/28/2017 1:00 PM CDT CBC (HEMOGRAM ONLY) Routine 12/28/2017 1:00 PM CDT LIPID PANEL Routine 12/28/2017 1:00 PM CDT C-REACTIVE PROTEIN Routine 12/28/2017 1:00 PM CDT VITAMIN B12 AND FOLATE Routine 12/28/2017 1:00 PM CDT TSH/FREE T4 IF INDICATED Routine 12/28/2017 1:00 PM CDT POCT-GLUCOSE METER Routine 12/28/2017 11:27 AM CDT after 10/07/2017 Results RHYTHM STRIP - SCAN (01/01/2018 12:32 PM CDT) Narrative Performed At ECG 12 lead (12/30/2017 12:27 PM CDT) Specimen Narrative Performed At Ventricular Rate 66 BPM GE MUSE Atrial Rate 66 BPM P-R Interval 166 ms QRS Duration 122 ms Q-T Interval 404 ms QTC Calculation(Bazett) 423 ms P Concord 63 degrees R Concord 34 degrees T Concord 98 degrees Normal sinus rhythm Non-specific intra-ventricular [...] 404 ms QTC Calculation(Bazett) 423 ms P Concord 63 degrees R Concord 34 degrees T Concord 98 degrees Normal sinus rhythm Non-specific intra-ventricular conduction delay T wave abnormality, consider lateral ischemia Abnormal ECG No previous ECGs available Confirmed by MD Pepe Roberto ([id number]) on 12/30/2017 1:58:10 PM Performing Organization Address City/[facility] Phone Number [facility] POC-Glucose meter (12/30/2017 7:32 AM CDT)Only the most recent of7 resultswithin the time period is included. POC-Glucose Meter 79Comment: TESTED AT 70 - 110 mg/dL [address] [address] Specimen Blood Performing Organization Address City/[facility] Cent[facility] Phone Number [address] [phone] CENTER Basic metabolic panel (12/30/2017 4:43 AM CDT)Only the most recent of3 resultswithin the time period is included. Sodium 134 (L) 136 - 145 meq/L [facility] Potassium 3.8 3.5 - 5.1 meq/L [facility] Chloride 104 98 - 107 meq/L [facility] CO2 23 22 - 29 meq/L [facility] BUN 13 7 - 21 mg/dL [facility] Creatinine 0.66 0.57 - 1.25 mg/dL [facility] Glucose 70 70 - 105 mg/dL [facility] Calcium 8.8 8.4 - 10.2 mg/dL [facility] EGFR 121Comment: ESTIMATED GFR IS mL/min/1.73 sq m [facility] NOT ACCURATE [facility] CLEARANCE IN PREDICTING GLOMERULAR FILTRATION RATE. ESTIMATED GFR IS NOT APPLICABLE FOR DIALYSIS PATIENTS. Specimen Blood Performing Organization Address City/State/Zipcode Phone Number [facility] [address] [place] [address] CENTER MR brain without IV contrast (12/29/2017 7:01 PM CDT) Specimen Narrative Performed At FINAL REPORT [employer] CLINICAL HISTORY: Stroke Ischemic Stroke Evaluation TECHNIQUE: MRI of the brain utilizing axial T2, FLAIR, GRE, DWI; sagittal and coronal T1-weighted images. MRA of the head utilizing 3-D ttpl-xe-olrimf technique, with 3-D reconstructions. MRA of the neck utilizing 2-D and 3-D ccda-hq-ycbrfi technique, with 3-D reconstructions. COMPARISON: None MRI [...] MD Report Verified Date/Time:12/29/2017 23:04:35 Reading Location: [address] Transitional Reading Room Procedure Note Interface, External Ris In - 12/29/2017 11:06 PM CDT FINAL REPORT CLINICAL HISTORY: Stroke Ischemic Stroke Evaluation TECHNIQUE: MRI of the brain utilizing axial T2, FLAIR, GRE, DWI; sagittal and coronal T1-weighted images. MRA of the head utilizing 3-D gynp-bs-kdmmld technique, with 3-D reconstructions. MRA of the neck utilizing 2-D and 3-D jblg-yt-vmonvw technique, with 3-D reconstructions. COMPARISON: None MRI [...] Report Verified Date/Time: 12/29/2017 23:04:35 Reading Location: [address] Transitional Reading Room Performing Organization Address City/State/Zipcode Phone Number [employer] MRA neck without IV contrast (12/29/2017 7:01 PM CDT) Specimen Narrative Performed At FINAL REPORT [employer] CLINICAL HISTORY: Stroke Ischemic Stroke Evaluation TECHNIQUE: MRI of the brain utilizing axial T2, FLAIR, GRE, DWI; sagittal and coronal T1-weighted images. MRA of the head utilizing 3-D iwqb-vc-jadoxi technique, with 3-D reconstructions. MRA of the neck utilizing 2-D and 3-D obfk-dx-gexorz technique, with 3-D reconstructions. COMPARISON: None MRI [...] MD Report Verified Date/Time:12/29/2017 23:04:35 Reading Location: [address] Reading Room Procedure Note Interface, External Ris In - 12/29/2017 11:06 PM CDT FINAL REPORT CLINICAL HISTORY: Stroke Ischemic Stroke Evaluation TECHNIQUE: MRI of the brain utilizing axial T2, FLAIR, GRE, DWI; sagittal and coronal T1-weighted images. MRA of the head utilizing 3-D vnyu-ti-yedekp technique, with 3-D reconstructions. MRA of the neck utilizing 2-D and 3-D fpdh-ii-ozebog technique, with 3-D reconstructions. COMPARISON: None MRI [...] Report Verified Date/Time: 12/29/2017 23:04:35 Reading Location: [facility] B1 C013T Transitional Reading Room Performing Organization Address City/State/Zipcode Phone Number [employer] MRA head without IV contrast (12/29/2017 7:01 PM CDT) Specimen Narrative Performed At FINAL REPORT [employer] CLINICAL HISTORY: Stroke Ischemic Stroke Evaluation TECHNIQUE: MRI of the brain utilizing axial T2, FLAIR, GRE, DWI; sagittal and coronal T1-weighted images. MRA of the head utilizing 3-D gqar-xc-elnilv technique, with 3-D reconstructions. MRA of the neck utilizing 2-D and 3-D kkqw-hg-krmzot technique, with 3-D reconstructions. COMPARISON: None MRI [...] MD Report Verified Date/Time:12/29/2017 23:04:35 Reading Location: [facility] C013[facility] Reading Room Procedure Note Interface, External Ris In - 12/29/2017 11:06 PM CDT FINAL REPORT CLINICAL HISTORY: Stroke Ischemic Stroke Evaluation TECHNIQUE: MRI of the brain utilizing axial T2, FLAIR, GRE, DWI; sagittal and coronal T1-weighted images. MRA of the head utilizing 3-D bbed-yi-ziirob technique, with 3-D reconstructions. MRA of the neck utilizing 2-D and 3-D rixt-el-bbcato technique, with 3-D reconstructions. COMPARISON: None MRI [...] Report Verified Date/Time: 12/29/2017 23:04:35 Reading Location: [facility] B1 C013T Transitional Reading Room Performing Organization Address City/State/Zipcode Phone Number [facility] ECHOCARDIOGRAM REPORT - SCAN (12/29/2017 6:20 PM CDT) Narrative Performed At 2D Echo W/Doppler(CW/PW/Color) (12/29/2017 10:27 AM CDT) Ejection Fraction [facility] Specimen Narrative Performed At Transthoracic Echocardiography Report (TTE) [facility] ECHO HEARTLAB [facility] Demographics Patient Name JOSE SOLANO Date of Study 12/29/2017 YUNIOR [id number] GenderMale Visit Number [id number] Unknown [id number] Room Number 2254 Number Date of Birth1Referring Physician Nancy Nina Age67 year(s)Body Shop Manager Fabiana Hahn [facility] AnalystIzoAlireza Shrestha MD Procedure Type of Study TTE procedure:2DECHO [...] left ventricle is chamber size (by PSLAX di mension) is normal (male - LVIDd 4.2-5.8cm) . Mi ld concentric LV hypertrophy. All of the LV se gments contract normally . Global LV systolic fu nction normal . Estimated LVEF by qualitative as sessment is normal (55-60%) . Grade 1 diastolic dy sfunction (impaired relaxation and low-normal LA pr essure). Normal (cardiac index 2-3 L/min/m2) ca rdiac output state at rest is noted. Left AtriumLA size is mildly enlarged (35-41 ml/m2) . Right VentricleThe right ventricular chamber size and systolic fu nction are within normal limits. Right Atrium RA cavity size is normal . Atrial SeptumIV saline contrast injection was negative for a PFO (p atent foramen ovale) at rest and post Valsalva . Aortic Valve Mild AoV cusp thickening. Ao V cusp mobility is normal . Mitral Valve Mild MV leaflet thickening. Tr patience mitral regurgitation. Tricuspid ValveTV structure is normal. Un able to estimate peak systolic PA pressure; in adequate TR velocity signal. Pulmonic Valve Normal PV structure and function. AortaAortic root size (SInus of Valsalva diameter) is no rmal . Proximal ascending aorta size is normal . PericardiumNo significant pericardial effusion is visualized. IVC/SVC/PA/PV/PleuralThe right upper pulmonary vein (RUPV) is normal . Th e estimated RA pressure by IVC dynamics 0-5mmHg . Chambers/Structures Left Atrium LA Volume: 69.89 mlLA Area: 22.7 cm^2 LA Vol. Index: 37 ml/m^2 Left Ventricle LVIDd: 5.18 cm LVEDV:142.98 ml LVIDs: 4.03 cm LVESV:65.35 ml LV Septum Diastolic: 1.17 cmLVEF 2D Cube: 59.1 % LV PW Diastolic: 1.3 cm LV FS: 22.2 % LVOT Diameter: 2.16 cm LVEF: 54.3 % Right Ventricle TAPSE: 2.69 cm Aorta Ao Root S of Roxanne.: 3.48 cmAscending Aorta: 3.08 cm Doppler/Quantitative Measurements Mitral Valve MV Peak E-Wave: 0.79 m/sMV Peak A-Wave: 0.92 m/s P1/2t: 60.9 msecE/ A Ratio: 0.86 Peak Gradient: 2.51 mmHg Deceleration [...] Study 12/29/2017 YUNIOR Gender Male Visit Number [id number] Race Unknown Room Number 2254 Number Date of 1950 Referring Physician Nancy Nina Age 67 year(s) 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ode Phone Number [facility] ECHO HEARTLAB [facility] CPACS Hemoglobin A1c (12/29/2017 1:33 AM CDT) Hemoglobin A1C 8.3 (H) 4.3 - 6.1 % [facility] Specimen Blood Performing Organization Address [facility] Phone Number [address] [address] CENTER Troponin I (12/29/2017 1:24 AM CDT)Only the most recent of2 resultswithin the time period is included. Troponin I 0.01 0.00 - 0.03 ng/mL [facility] Specimen Blood Narrative Performed At [facility] Troponin I (TnI) levels must be interpreted [...] acidosis, acute neurological disease, and persistent tachyarrhythmia. Performing Organization Address [facility] Cent[facility]ode Phone Number [address] [address] [phone] [place] Lipid panel (12/29/2017 1:24 AM CDT)Only the most recent of2 resultswithin the time period is included. Triglycerides 100 mg/dL [facility] Cholesterol 147 mg/dL [facility] HDL 31 mg/dL [facility] LDL Calculated 96 mg/dL [facility] Specimen Blood Narrative Performed At [facility] Triglyceride Reference Range: Low Risk <150 [id number] High Risk 200-499 Very High Risk>=500 Cholesterol Reference Range: Low Risk <200 [id number] High Risk>240 HDL Cholesterol Reference Range: Low Risk >=60 High Risk <40 LDL Cholesterol Reference Range: Optimal<100 Near [id number] [id number] Gnzb201-777 Very High >=190 Performing Organization Address City/State/Zipcode Phone Number [place] [phone] [place] [address] [phone] CENTER XR chest 1 view portable / bedside (12/28/2017 3:10 PM CDT) Specimen Narrative Performed At FINAL REPORT [facility] History: Shortness of breath Comparison: None Findings: [...] MD Report Verified Date/Time:12/28/2017 16:54:45 Reading Location: [address] Transitional Reading Room Procedure Note Interface, [...] Report Verified Date/Time: 12/28/2017 16:54:45 Reading Location: [address] Transitional Reading Room Performing Organization Address City/State/Zipcode Phone Number [facility] Vitamin B12 and Folate (12/28/2017 1:00 PM CDT) Vitamin B12 452 213 - 816 pg/mL [facility] Folate 13.1 >=7.0 ng/mL [facility] Specimen Blood Performing Organization Address City/State/Zipcode Phone Number [address] [address] [place] TSH/Free T4 If Indicated (12/28/2017 1:00 PM CDT) TSH 1.27 0.35 - 4.94 uIU/mL [facility] Specimen Blood Performing Organization Address City/State/Zipcode Phone Number [address] [address] CENTER C-Reactive Protein (12/28/2017 1:00 PM CDT) CRP 0.52 (H) 0.00 - 0.50 mg/dL [facility] Specimen Blood Performing Organization Address [facility] Phone Number [address] [address] [place] CBC with platelet count + automated diff (12/28/2017 1:00 PM CDT) WBC 8.5 3.5 - 10.5 K/L [facility] RBC 5.45 4.63 - 6.08 M/L [facility] Hemoglobin 17.2 13.7 - 17.5 GM/DL [facility] Hematocrit 51.1 (H) 40.1 - 51.0 % [facility] MCV 93.8 (H) 79.0 - 92.2 fL [facility] MCH 31.6 25.7 - 32.2 pg [facility] MCHC 33.7 32.3 - 36.5 GM/DL [facility] RDW 12.8 11.6 - 14.4 % [facility] Platelets 321 150 - 450 K/CU MM [facility] MPV 9.6 9.4 - 12.4 fL [facility] nRBC 0 0 - 0 /100 WBC [facility] % Neutros 44 % [facility] % Lymphs 42 % [facility] % Monos 11 % [facility] % Eos 2 % [facility] % Baso 1 % [facility] # Neutros 3.75 1.78 - 5.38 K/L [facility] # Lymphs 3.59 (H) 1.32 - 3.57 K/L [facility] # Monos 0.90 (H) 0.30 - 0.82 K/L [facility] # Eos 0.20 0.04 - 0.54 K/L [facility] # Baso 0.06 0.01 - 0.08 K/L [facility] Immature Granulocytes-Relative 0 0 - 1 % [facility] Specimen Blood Performing Organization Address City/[facility]/Zipcode Phone Number [address] [address] [place] Prothrombin time/INR (12/28/2017 1:00 PM CDT) Protime 13.9 11.7 - 14.7 seconds [facility] INR 1.1 <=5.9 [facility] Specimen Blood Narrative Performed At [facility] RECOMMENDED COUMADIN/WARFARIN INR THERAPY RANGES STANDARD DOSE: 2.0 - 3.0 Includes: PROPHYLAXIS for venous thrombosis, systemic embolization; TREATMENT for venous thrombosis and/or pulmonary embolus. HIGH RISK: Target INR is 2.5-3.5 for patients with mechanical heart valves. Performing Organization Address City/[facility] Cent[facility]ode Phone Number [address] [address] [place] CBC (Hemogram only) (12/28/2017 1:00 PM CDT) WBC 8.5 3.5 - 10.5 K/L [facility] RBC 5.45 4.63 - 6.08 M/L [facility] Hemoglobin 17.2 13.7 - 17.5 GM/DL [facility] Hematocrit 51.1 (H) 40.1 - 51.0 % [facility] MCV 93.8 (H) 79.0 - 92.2 fL [facility] MCH 31.6 25.7 - 32.2 pg [facility] MCHC 33.7 32.3 - 36.5 GM/DL [facility] RDW 12.8 11.6 - 14.4 % [facility] Platelets 321 150 - 450 K/CU MM [facility] MPV 9.6 9.4 - 12.4 fL [facility] nRBC 0 0 - 0 /100 WBC [facility] Specimen Blood Performing Organization Address City/[facility]/Zipcode Phone Number [address] [address] [phone] [place] Phosphorus (12/28/2017 1:00 PM CDT) Phosphorus 3.9 2.3 - 4.7 mg/dL [facility] Specimen Blood Performing Organization Address City/State/Zipcode Phone Number [address] [address] [place] Magnesium (12/28/2017 1:00 PM CDT) Magnesium 2.0 1.6 - 2.6 mg/dL [facility] Specimen Blood Performing Organization Address City/[facility]/Zipcode Phone Number [address] [address] [place] Comprehensive metabolic panel (12/28/2017 1:00 PM CDT) Protein, Total 7.3 6.0 - 8.3 gm/dL [facility] Albumin 3.8 3.5 - 5.0 g/dL [facility] Alkaline Phosphatase 98 40 - 150 U/L [facility] Total Bilirubin 0.5 0.2 - 1.2 mg/dL [facility] Sodium 131 (L) 136 - 145 meq/L [facility] Potassium 4.2 3.5 - 5.1 meq/L [facility] Chloride 99 98 - 107 meq/L [facility] CO2 26 22 - 29 meq/L [facility] BUN 11 7 - 21 mg/dL [facility] Creatinine 0.82 0.57 - 1.25 mg/dL [facility] Glucose 74 70 - 105 mg/dL [facility] Calcium 9.3 8.4 - 10.2 mg/dL [facility] AST 16 5 - 34 U/L [facility] ALT 14 6 - 55 U/L [facility] EGFR 94Comment: ESTIMATED GFR mL/min/1.73 sq m [facility] IS NOT ACCURATE [facility] CREATININE CLEARANCE IN PREDICTING GLOMERULAR FILTRATION RATE. ESTIMATED GFR IS NOT APPLICABLE FOR DIALYSIS PATIENTS. Specimen Blood Performing Organization Address City/State/Zipcode Phone Number [facility] [address] [place] [address] [place] after 10/07/2017 Insurance Payer Benefit Plan / Group Subscriber ID Type Phone Address MEDICARE MEDICARE A B xxxxxxxxxxx Medicare [address] (Home) [place] [id number] Advance Directives For more information, please contact:[address] [place], [place] [phone] Code Status Date Activated Date Inactivated Comments Full Code 12/28/2017 12:23 PM 12/30/2017 5:42 PM This code status was determined by: Patient
[2018-10-08] MEDS ORDERED: OXYMETAZOLINE HCL 0.05% 15ML NAS ONE (14:12)
--- NOTE | 2018-10-08 15:10 | ER ---
Nurse's Notes [facility] Name: Jose Benson Age: 68 yrs Sex: Male : 1950 Arrival Date: 10/08/2018 Time: 10:58 Bed 17 Private MD: Juan Coles E Diagnosis: Epistaxis Presentation: 10/08 11:02 Presenting complaint: Patient states: nose bleed to L nare that began 1 hour ago. PT ss reports he has never experienced a nose bleed before. Transition of care: patient was not received from another setting of care. Onset of symptoms was October 08, 2018. Risk Assessment: Do you want to hurt yourself or someone else? Patient reports no desire to harm self or others. Initial Sepsis Screen: Does the patient meet any 2 criteria? No. Patient's initial sepsis screen is negative. Does the patient have a suspected source of infection?. Care prior to arrival: None. 11:02 Acuity: DANDY 2 ss 11:02 Method Of Arrival: Ambulatory ss Triage Assessment: 11:05 General: Appears in no apparent distress. comfortable, Behavior is cooperative, bp appropriate for age, anxious. Pain: Denies pain. EENT: Nares with bleeding noted. Neuro: Level of Consciousness is awake, alert, obeys commands, Oriented to person, place, time, situation, Appropriate for age. Cardiovascular: No deficits noted. Respiratory: Airway is patent Respiratory effort is even, unlabored, Respiratory pattern is regular, symmetrical. GI: No signs and/or symptoms were reported involving the gastrointestinal system. : No signs and/or symptoms were reported regarding the genitourinary system. Derm: No deficits noted. Musculoskeletal: No deficits noted. 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 - Social history:: Smoking status: Patient uses tobacco products, cigars. - Ebola Screening: : Patient denies exposure to infectious person Patient denies travel to an Ebola-affected area in the 21 days before illness onset. Screenin:05 Abuse screen: Denies threats or abuse. Denies injuries from another. Nutritional bp screening: No deficits noted. Tuberculosis screening: No symptoms or risk factors identified. Fall Risk None identified. Assessment: 11:05 General: SEE TRIAGE NOTE. bp 11:44 Reassessment: PT NOW NORMO-TENSIVE, PROVIDER NOTIFIED. bp 12:15 Reassessment: RHINO ROCKET PLACED BY PROVIDER. bp 12:41 Reassessment: RHINO ROCKET SPONTANEOUSLY REMOVED, PROVIDER NOTIFIED. bp 15:17 Reassessment: PT D/C HOME AMBULATORY WITH FAMILY, DX WITH EPISTAXIS. bp Vital Signs: 11:05 BP 201 / 84; Pulse 90; Temp 98.5(TE); Pulse Ox 95% on R/A; Weight 72.57 kg; Height 5 ss ft. 9 in. (175.26 cm); Pain 0/10; 11:41 BP 134 / 97; Pulse 78; Resp 16; Pulse Ox 96% ; bp 12:30 BP 122 / 111; Pulse 83; Resp 16; Pulse Ox 95% ; bp 13:30 BP 128 / 87; Pulse 69; Resp 16; Pulse Ox 100% ; bp 15:12 BP 111 / 87; Pulse 70; Resp 16; Temp 98; Pulse Ox 100% ; bp 11:05 Body Mass Index 23.63 (72.57 kg, 175.26 cm) ED Course: 10:58 Patient arrived in ED. mr 10:58 Juan Coles MD is Private Physician. mr 11:04 Triage completed. ss 11:05 Arm band placed on right wrist. ss 11:05 Patient has correct armband on for positive identification. Bed in low position. Call bp light in reach. Side rails up X2. Adult w/ patient. 11:07 Aayush Claros PA is PHCP. jr8 11:07 Ronny Burleson MD is Attending Physician. jr8 11:08 Placido Mann, TERESA is Primary Nurse. bp 11:40 Inserted saline lock: 20 gauge in right forearm, using aseptic technique. bp 15:09 Carola Love MD is Referral Physician. jr8 15:17 No provider procedures requiring assistance completed. IV discontinued, intact, bp bleeding controlled, No redness/swelling at site. Pressure dressing applied. Administered Medications: 15:06 Drug: [place] 5 mg-325 mg 1 tabs Route: PO; bp 15:19 Follow up: Response: Medication administered at discharge. bp 15:18 Not Given (Hemodynamic Parameters): Labetalol 10 mg IVP once bp Outcome: 15:09 Discharge ordered by MD. ramirez 15:18 Discharged to home ambulatory, with family. bp 15:18 Condition: stable 15:18 Discharge instructions given to patient, Instructed on discharge instructions, follow up and referral plans. Demonstrated understanding of instructions, follow-up care. 15:19 Patient left the ED. bp Signatures: Carey Presley mr Rae Brush RN RN ss Aayush Claros PA PA jr8 Peltier, Brian, TERESA RN bp
--- NOTE | 2018-10-08 15:10 | EDPHYS ---
Physician Documentation [facility] Name: Jose Benson Age: 68 yrs Sex: Male : 1950 Arrival Date: 10/08/2018 Time: 10:58 Bed 17 Private MD: Juan Coles E ED Physician Ronny Burleson HPI: 10/08 11:59 This 68 yrs old Male presents to ER via Ambulatory with complaints of Nose jr8 Bleed. 11:59 The patient presents with a nose bleed, that is apparently anterior. Onset: The jr8 symptoms/episode began/occurred acutely, today. Modifying factors: The symptoms are alleviated by pressure, the symptoms are aggravated by nothing. Associated signs and symptoms: The patient has no apparent associated signs or symptoms, Loss of consciousness: the patient experienced no loss of consciousness. Severity of symptoms: At their worst the symptoms were mild in the emergency department the symptoms have improved. The patient has not experienced similar symptoms in the past. The patient has not recently seen a physician. 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 - Social history:: Smoking status: Patient uses tobacco products, cigars. - Ebola Screening: : Patient denies exposure to infectious person Patient denies travel to an Ebola-affected area in the 21 days before illness onset. ROS: 11:59 Eyes: Negative for injury, pain, redness, and discharge, Neck: Negative for injury, jr8 pain, and swelling, Cardiovascular: Negative for chest pain, palpitations, and edema, Respiratory: Negative for shortness of breath, cough, wheezing, and pleuritic chest pain, Abdomen/GI: Negative for abdominal pain, nausea, vomiting, diarrhea, and constipation, Back: Negative for injury and pain, MS/Extremity: Negative for injury and deformity, Skin: Negative for injury, rash, and discoloration, Neuro: Negative for headache, weakness, numbness, tingling, and seizure. 11:59 ENT: Positive for nose bleed, Negative for drainage from ear(s), ear pain, nasal discharge, sinus pain, sore throat, difficulty swallowing, difficulty handling secretions, hoarseness. Exam: 11:59 Eyes: Pupils equal round and reactive to light, extra-ocular motions intact. Lids and jr8 lashes normal. Conjunctiva and sclera are non-icteric and not injected. Cornea within normal limits. Periorbital areas with no swelling, redness, or edema. ENT: Nares patent. No nasal discharge, no septal abnormalities noted. Dried blood to left nare without active bleeding. Tympanic membranes are normal and external auditory canals are clear. Oropharynx with no redness, swelling, or masses, exudates, or evidence of obstruction, uvula midline. Mucous membranes moist. Neck: Trachea midline, no thyromegaly or masses palpated, and no cervical lymphadenopathy. Supple, full range of motion without nuchal rigidity, or vertebral point tenderness. No Meningismus. Cardiovascular: Regular rate and rhythm with a normal S1 and S2. No gallops, murmurs, or rubs. Normal PMI, no JVD. No pulse deficits. Respiratory: Lungs have equal breath sounds bilaterally, clear to auscultation and percussion. No rales, rhonchi or wheezes noted. No increased work of breathing, no retractions or nasal flaring. Abdomen/GI: Soft, non-tender, with normal bowel sounds. No distension or tympany. No guarding or rebound. No evidence of tenderness throughout. Back: No spinal tenderness. No costovertebral tenderness. Full range of motion. Skin: Warm, dry with normal turgor. Normal color with no rashes, no lesions, and no evidence of cellulitis. MS/ Extremity: Pulses equal, no cyanosis. Neurovascular intact. Full, normal range of motion. Neuro: Awake and alert, GCS 15, oriented to person, place, time, and situation. Cranial nerves II-XII grossly intact. Motor strength 5/5 in all extremities. Sensory grossly intact. Cerebellar exam normal. Normal gait. Vital Signs: 11:05 BP 201 / 84; Pulse 90; Temp 98.5(TE); Pulse Ox 95% on R/A; Weight 72.57 kg; Height 5 ss ft. 9 in. (175.26 cm); Pain 0/10; 11:41 BP 134 / 97; Pulse 78; Resp 16; Pulse Ox 96% ; bp 12:30 BP 122 / 111; Pulse 83; Resp 16; Pulse Ox 95% ; bp 13:30 BP 128 / 87; Pulse 69; Resp 16; Pulse Ox 100% ; bp 15:12 BP 111 / 87; Pulse 70; Resp 16; Temp 98; Pulse Ox 100% ; bp 11:05 Body Mass Index 23.63 (72.57 kg, 175.26 cm) MDM: 11:07 Patient medically screened. jr8 15:06 Data reviewed: vital signs, nurses notes, and as a result, I will discharge patient. jr8 Data interpreted: Pulse oximetry: on room air is 95 %. Interpretation: normal. Counseling: I had a detailed discussion with the patient and/or guardian regarding: the historical points, exam findings, and any diagnostic results supporting the discharge/admit diagnosis, the need for outpatient follow up, an ENT specialist, to return to the emergency department if symptoms worsen or persist or if there are any questions or concerns that arise at home. Response to treatment: the patient's symptoms have resolved after treatment. 10/08 11:24 Order name: IV; Complete Time: 11:40 jr8 Administered Medications: 15:06 Drug: [place] 5 mg-325 mg 1 tabs Route: PO; bp 15:19 Follow up: Response: Medication administered at discharge. bp 15:18 Not Given (Hemodynamic Parameters): Labetalol 10 mg IVP once bp Disposition: 10/08/18 15:09 Discharged to Home. Impression: Epistaxis. - Condition is Stable. - Discharge Instructions: Nosebleed, Adult. - Medication Reconciliation Form, Thank You Letter, Antibiotic Education, Prescription Opioid Use form. - Follow up: Carola Love MD; When: 48 Hours; Reason: Recheck today's complaints, Continuance of care, Re-evaluation by your physician. - Problem is new. - Symptoms have improved. Addendum: 10/12/2018 09:00 Co-signature as Attending Physician, Ronny Burleson MD I agree with the assessment and c deluca plan of care. Signatures: Ronny Burleson MD MD cha Smirch, Shelby, RN RN Aayush Claros PA PA jr8 Placido Mann RN RN bp Corrections: (The following items were deleted from the chart) 10/08 15:19 15:09 10/08/2018 15:09 Discharged to Home. Impression: Epistaxis. Condition is Stable. bp Forms are Medication Reconciliation Form, Thank You Letter, Antibiotic Education, Prescription Opioid Use. Follow up: Carola Love; When: 48 Hours; Reason: Recheck today's complaints, Continuance of care, Re-evaluation by your physician. Problem is new. Symptoms have improved. jr8
[2018-10-08] MEDS ORDERED: HYDROCODONE/APAP 5/325 MG TAB ONE (15:24)
== END 2018-10-08 15:19 | disposition home or self-care (01) ==
LOC: ER 10:55
DX: R04.0 Epistaxis (principal); E11.9 Type 2 diabetes mellitus without complications; E78.5 Hyperlipidemia, unspecified; I10 Essential (primary) hypertension; F17.290 Nicotine dependence, other tobacco product, uncomplicated; Z86.73 Personal history of transient ischemic attack (TIA), and cerebral infarction without residual deficits; Z79.4 Long term (current) use of insulin
CPT/HCPCS: 99283

== ENCOUNTER 2018-10-08 22:20 | Emergency (ER) | payer OTHER ==
--- OUTSIDE RECORDS SUMMARY | 2018-10-08 22:23 | XMS REPORT | Clinical Summary ---
:1950 Author Organization [employer] Address [address] [place] [address] Care Team Providers Name Role Phone Juan [...] 404 ms QTC Calculation(Bazett) 423 ms P [place] 63 degrees R [place] 34 degrees T [place] 98 degrees Normal sinus rhythm Non-specific intra-ventricular [...] 404 ms QTC Calculation(Bazett) 423 ms P [place] 63 degrees R [place] 34 degrees T [place] 98 degrees Normal sinus rhythm Non-specific intra-ventricular [...] 404 ms QTC Calculation(Bazett) 423 ms P [place] 63 degrees R [place] 34 degrees T [place] 98 degrees Normal sinus rhythm Non-specific intra-ventricular conduction delay T wave abnormality, consider lateral ischemia Abnormal ECG No previous ECGs available Confirmed by MD Pepe Roberto ([id number]) on 12/30/2017 1:58:10 PM Performing Organization Address City/[facility] Phone Number [employer] POC-Glucose meter (12/30/2017 7:32 AM CDT)Only the most recent of7 resultswithin the time period is included. POC-Glucose Meter 79Comment: TESTED AT 70 - 110 mg/dL [address] [address] Specimen Blood Performing Organization Address City/[facility] Corporation[facility]il Phone Number [address] [phone] CENTER Basic metabolic panel (12/30/2017 4:43 AM CDT)Only the most recent of3 resultswithin the time period is included. Sodium 134 (L) 136 - 145 meq/L [facility] Potassium 3.8 3.5 - 5.1 meq/L [facility] Chloride 104 98 - 107 meq/L [facility] CO2 23 22 - 29 meq/L [facility] BUN 13 7 - 21 mg/dL [facility] Creatinine 0.66 0.57 - 1.25 mg/dL [facility] Glucose 70 70 - 105 mg/dL [facility] Calcium 8.8 8.4 - 10.2 mg/dL [facility] EGFR 121Comment: ESTIMATED GFR IS mL/min/1.[address] [facility] NOT ACCURATE CREATININE [facility] CENTER CLEARANCE IN PREDICTING GLOMERULAR FILTRATION RATE. ESTIMATED GFR IS NOT APPLICABLE FOR DIALYSIS PATIENTS. Specimen Blood Performing Organization Address City/State/Zipcode Phone Number [facility] [address] [place] [address] CENTER MR brain without IV contrast (12/29/2017 7:01 PM CDT) Specimen Narrative Performed At FINAL REPORT [facility] CLINICAL HISTORY: Stroke Ischemic Stroke Evaluation TECHNIQUE: MRI of the brain utilizing axial T2, FLAIR, GRE, DWI; sagittal and coronal T1-weighted images. MRA of the head utilizing 3-D glwh-cb-iosbyz technique, with 3-D reconstructions. MRA of the neck utilizing 2-D and 3-D uskr-vh-domfon technique, with 3-D reconstructions. COMPARISON: None MRI [...] MD Report Verified Date/Time:12/29/2017 23:04:35 Reading Location: [address] Transitional Reading Room Procedure Note Interface, External Ris In - 12/29/2017 11:06 PM CDT FINAL REPORT CLINICAL HISTORY: Stroke Ischemic Stroke Evaluation TECHNIQUE: MRI of the brain utilizing axial T2, FLAIR, GRE, DWI; sagittal and coronal T1-weighted images. MRA of the head utilizing 3-D jeus-an-njrnnd technique, with 3-D reconstructions. MRA of the neck utilizing 2-D and 3-D asrp-ig-uorpuj technique, with 3-D reconstructions. COMPARISON: None MRI [...] Report Verified Date/Time: 12/29/2017 23:04:35 Reading Location: [address] Transitional Reading Room Performing Organization Address City/State/Zipcode Phone Number [facility] MRA neck without IV contrast (12/29/2017 7:01 PM CDT) Specimen Narrative Performed At FINAL REPORT [facility] CLINICAL HISTORY: Stroke Ischemic Stroke Evaluation TECHNIQUE: MRI of the brain utilizing axial T2, FLAIR, GRE, DWI; sagittal and coronal T1-weighted images. MRA of the head utilizing 3-D cfxw-za-fevhgq technique, with 3-D reconstructions. MRA of the neck utilizing 2-D and 3-D qieq-rv-wnpyzk technique, with 3-D reconstructions. COMPARISON: None MRI [...] MD Report Verified Date/Time:12/29/2017 23:04:35 Reading Location: [address] Reading Room Procedure Note Interface, External Ris In - 12/29/2017 11:06 PM CDT FINAL REPORT CLINICAL HISTORY: Stroke Ischemic Stroke Evaluation TECHNIQUE: MRI of the brain utilizing axial T2, FLAIR, GRE, DWI; sagittal and coronal T1-weighted images. MRA of the head utilizing 3-D uzuj-hm-dpplyo technique, with 3-D reconstructions. MRA of the neck utilizing 2-D and 3-D drlq-dr-julgnr technique, with 3-D reconstructions. COMPARISON: None MRI [...] Report Verified Date/Time: 12/29/2017 23:04:35 Reading Location: [facility] B1 C013T Transitional Reading Room Performing Organization Address City/State/Zipcode Phone Number [facility] MRA head without IV contrast (12/29/2017 7:01 PM CDT) Specimen Narrative Performed At FINAL REPORT [facility] CLINICAL HISTORY: Stroke Ischemic Stroke Evaluation TECHNIQUE: MRI of the brain utilizing axial T2, FLAIR, GRE, DWI; sagittal and coronal T1-weighted images. MRA of the head utilizing 3-D ruza-ur-fuagzd technique, with 3-D reconstructions. MRA of the neck utilizing 2-D and 3-D mvyv-ay-zwdwbf technique, with 3-D reconstructions. COMPARISON: None MRI [...] MD Report Verified Date/Time:12/29/2017 23:04:35 Reading Location: [facility] C013[facility] Reading Room Procedure Note Interface, External Ris In - 12/29/2017 11:06 PM CDT FINAL REPORT CLINICAL HISTORY: Stroke Ischemic Stroke Evaluation TECHNIQUE: MRI of the brain utilizing axial T2, FLAIR, GRE, DWI; sagittal and coronal T1-weighted images. MRA of the head utilizing 3-D wnhm-jg-iovwmg technique, with 3-D reconstructions. MRA of the neck utilizing 2-D and 3-D fcvt-pk-ideluq technique, with 3-D reconstructions. COMPARISON: None MRI [...] Report Verified Date/Time: 12/29/2017 23:04:35 Reading Location: [facility] B1 C013T Transitional Reading Room Performing Organization Address City/State/Zipcode Phone Number [facility] ECHOCARDIOGRAM REPORT - SCAN (12/29/2017 6:20 PM CDT) Narrative Performed At 2D Echo W/Doppler(CW/PW/Color) (12/29/2017 10:27 AM CDT) Ejection Fraction [facility] Specimen Narrative Performed At Transthoracic Echocardiography Report (TTE) [facility]CHO [facility] Demographics Patient Name JOSE SOLANO Date of Study 12/29/2017 YUNIOR [id number] GenderMale Visit Number [id number] Unknown [id number] Room Number 2254 Number Date of Birth1Referring Physician Nancy Nina Age67 year(s)[employer] Consultant Fabiana Hahn [facility] AnalystIzoAlireza Shrestha MD Procedure Type of [...] Study 12/29/2017 YUNIOR Gender Male Visit Number [id number] Race Unknown Room Number 2254 Number Date of 1950 Referring Physician Nancy Nina Age 67 year(s) [employer] Consultant Fabiana Hahn RDCS Mess Attendant Alireza Lemus MD Procedure Type of [...] LVOT CI: 2.13 l/min/m^2 Performing Organization Address City/[facility] Corporationcode Phone Number [facility] E[facility]ART[facility] Hemoglobin A1c (12/29/2017 1:33 AM CDT) Hemoglobin A1C 8.3 (H) 4.3 - 6.1 % [facility] Specimen Blood Performing Organization Address [facility] Corporation[facility]il Phone Number [address] [address] [phone] CENTER Troponin I (12/29/2017 1:24 AM CDT)Only the most recent of2 resultswithin the time period is included. Troponin I 0.01 0.00 - 0.03 ng/mL [facility] Specimen Blood Narrative Performed At [facility] Troponin I (TnI) levels must [...] disease, and persistent tachyarrhythmia. Performing Organization Address [facility] Corporationcode Phone Number [address] [address] [phone] [place] Lipid panel (12/29/2017 1:24 AM CDT)Only the most recent of2 resultswithin the time period is included. Triglycerides 100 mg/dL [facility] Cholesterol 147 mg/dL [facility] HDL 31 mg/dL [facility] LDL Calculated 96 mg/dL [facility] Specimen Blood Narrative Performed At [facility] Triglyceride Reference Range: Low Risk <150 [id number] High Risk 200-499 Very High Risk>=500 Cholesterol Reference Range: Low Risk <200 [id number] High Risk>240 HDL Cholesterol Reference Range: Low Risk >=60 High Risk <40 LDL Cholesterol Reference Range: Optimal<100 Near [id number] Rmdi605-500 Very High >=190 Performing Organization Address City/State/Zipcode Phone Number [place] [phone] [place] [address] CENTER XR chest 1 view portable / bedside (12/28/2017 3:10 PM CDT) Specimen Narrative Performed At FINAL REPORT [facility] History: Shortness of breath Comparison: None Findings: [...] MD Report Verified Date/Time:12/28/2017 16:54:45 Reading Location: [address] Transitional Reading Room Procedure Note Interface, [...] Report Verified Date/Time: 12/28/2017 16:54:45 Reading Location: [address] Transitional Reading Room Performing Organization Address City/State/Zipcode Phone Number [facility] Vitamin B12 and Folate (12/28/2017 1:00 PM CDT) Vitamin B12 452 213 - 816 pg/mL [facility] Folate 13.1 >=7.0 ng/mL [facility] Specimen Blood Performing Organization Address City/State/Zipcode Phone Number [address] [address] [phone] [place] TSH/Free T4 If Indicated (12/28/2017 1:00 PM CDT) TSH 1.27 0.35 - 4.94 uIU/mL [facility] Specimen Blood Performing Organization Address City/State/Zipcode Phone Number [address] [address] CENTER C-Reactive Protein (12/28/2017 1:00 PM CDT) CRP 0.52 (H) 0.00 - 0.50 mg/dL [facility] Specimen Blood Performing Organization Address [facility] Phone Number [address] [address] [phone] [place] CBC with platelet count + automated diff (12/28/2017 1:00 PM CDT) WBC 8.5 3.5 - 10.5 K/L [facility] RBC 5.45 4.63 - 6.08 M/L [facility] Hemoglobin 17.2 13.7 - 17.5 GM/DL [facility] Hematocrit 51.1 (H) 40.1 - 51.0 % [facility] MCV 93.8 (H) 79.0 - 92.2 fL [facility] MCH 31.6 25.7 - 32.2 pg [facility] MCHC 33.7 32.3 - 36.5 GM/DL [facility] RDW 12.8 11.6 - 14.4 % [facility] Platelets 321 150 - 450 K/CU MM [facility] MPV 9.6 9.4 - 12.4 fL [facility] nRBC 0 0 - 0 /100 WBC [facility] % Neutros 44 % [facility] % Lymphs 42 % [facility] % Monos 11 % [facility] % Eos 2 % [facility] % Baso 1 % [facility] # Neutros 3.75 1.78 - 5.38 K/L [facility] # Lymphs 3.59 (H) 1.32 - 3.57 K/L [facility] # Monos 0.90 (H) 0.30 - 0.82 K/L [facility] # Eos 0.20 0.04 - 0.54 K/L [facility] # Baso 0.06 0.01 - 0.08 K/L [facility] Immature Granulocytes-Relative 0 0 - 1 % [facility] Specimen Blood Performing Organization Address City/[facility]/Zipcode Phone Number [address] [address] [phone] [place] Prothrombin time/INR (12/28/2017 1:00 PM CDT) Protime 13.9 11.7 - 14.7 seconds [facility] INR 1.1 <=5.9 [facility] Specimen Blood Narrative Performed At [facility] RECOMMENDED COUMADIN/WARFARIN INR THERAPY RANGES STANDARD DOSE: 2.0 - 3.0 Includes: PROPHYLAXIS for venous thrombosis, systemic embolization; TREATMENT for venous thrombosis and/or pulmonary embolus. HIGH RISK: Target INR is 2.5-3.5 for patients with mechanical heart valves. Performing Organization Address City/[facility] Phone Number [address] [address] [place] CBC (Hemogram only) (12/28/2017 1:00 PM CDT) WBC 8.5 3.5 - 10.5 K/L [facility] RBC 5.45 4.63 - 6.08 M/L [facility] Hemoglobin 17.2 13.7 - 17.5 GM/DL [facility] Hematocrit 51.1 (H) 40.1 - 51.0 % [facility] MCV 93.8 (H) 79.0 - 92.2 fL [facility] MCH 31.6 25.7 - 32.2 pg [facility] MCHC 33.7 32.3 - 36.5 GM/DL [facility] RDW 12.8 11.6 - 14.4 % [facility] Platelets 321 150 - 450 K/CU MM [facility] MPV 9.6 9.4 - 12.4 fL [facility] nRBC 0 0 - 0 /100 WBC [facility] Specimen Blood Performing Organization Address City/[facility]/Zipcode Phone Number [address] [address] [place] Phosphorus (12/28/2017 1:00 PM CDT) Phosphorus 3.9 2.3 - 4.7 mg/dL [facility] Specimen Blood Performing Organization Address City/State/Zipcode Phone Number [address] [address] [place] Magnesium (12/28/2017 1:00 PM CDT) Magnesium 2.0 1.6 - 2.6 mg/dL [facility] Specimen Blood Performing Organization Address City/[facility]/Zipcode Phone Number [address] [address] [place] Comprehensive metabolic panel (12/28/2017 1:00 PM CDT) Protein, Total 7.3 6.0 - 8.3 gm/dL [facility] Albumin 3.8 3.5 - 5.0 g/dL [facility] Alkaline Phosphatase 98 40 - 150 U/L [facility] Total Bilirubin 0.5 0.2 - 1.2 mg/dL [facility] Sodium 131 (L) 136 - 145 meq/L [facility] Potassium 4.2 3.5 - 5.1 meq/L [facility] Chloride 99 98 - 107 meq/L [facility] CO2 26 22 - 29 meq/L [facility] BUN 11 7 - 21 mg/dL [facility] Creatinine 0.82 0.57 - 1.25 mg/dL [facility] Glucose 74 70 - 105 mg/dL [facility] Calcium 9.3 8.4 - 10.2 mg/dL [facility] AST 16 5 - 34 U/L [facility] ALT 14 6 - 55 U/L [facility] EGFR 94Comment: ESTIMATED GFR mL/min/1.73 sq m [facility] IS NOT ACCURATE [facility] CREATININE CLEARANCE IN PREDICTING GLOMERULAR FILTRATION RATE. ESTIMATED GFR IS NOT APPLICABLE FOR DIALYSIS PATIENTS. Specimen Blood Performing Organization Address City/State/Zipcode Phone Number [facility] [address] [place] [address] [place] after 10/07/2017 Insurance Payer Benefit Plan / Group Subscriber ID Type Phone Address MEDICARE MEDICARE A B xxxxxxxxxxx Medicare [address] (Home) [place] [id number] Advance Directives For more information, please contact:[address] [place], [place] [phone] Code Status Date Activated Date Inactivated Comments Full Code 12/28/2017 12:23 PM 12/30/2017 5:42 PM This code status was determined by: Patient
--- OUTSIDE RECORDS SUMMARY | 2018-10-08 22:24 | XMS REPORT ---
:1950 [facility] [address] [place] [address] [address] [place] [address] Care Team Providers Name Role Phone ALISSA [...] (BEAKER) (test 79 mg/dL 70-110 TESTED AT [facility] [address] [facility] [phone]) [facility] [id number] BASIC METABOLIC [id number] 05:19:00 Test Item Value Reference Range Comments SODIUM (BEAKER) (test 134 meq/L 136-145 wvbs=340) POTASSIUM (BEAKER) (test 3.8 meq/L 3.5-5.1 qumc=706) CHLORIDE (BEAKER) (test 104 meq/L 98-107 vncx=563) CO2 (BEAKER) (test 23 meq/L 22-29 iycf=380) BLOOD UREA NITROGEN 13 mg/dL 7-21 (BEAKER) (test kyrv=895) CREATININE (BEAKER) (test 0.66 mg/dL 0.57-1.25 yhjs=586) GLUCOSE RANDOM (BEAKER) 70 mg/dL 70-105 (test estr=913) CALCIUM (BEAKER) (test 8.8 mg/dL 8.4-10.2 brht=037) EGFR (BEAKER) (test 121 mL/min/1.73 sq m ESTIMATED GFR IS NOT xrhl=5914) ACCURATE CREATININE CLEARANCE IN PREDICTING GLOMERULAR FILTRATION RATE. ESTIMATED GFR IS NOT APPLICABLE FOR DIALYSIS PATIENTS. MR, MRA, BRAIN, WITHOUT [id number] 23:04:00Reason for exam:-> Ischemic Stroke EvaluationFINAL REPORT CLINICAL HISTORY: StrokeIschemic Stroke Evaluation TECHNIQUE: MRI of the brain utilizing axial T2 , FLAIR, GRE, DWI; sagittal and coronal T1-weighted images.MRA of the head utilizing 3-D gdll-kp-kjiwjc technique, with 3-D reconstructions. MRA of the neck utilizing 2-D and 3-D sejg-cs-ofzarw technique, with 3-D reconstructions. COMPARISON: None MRI [...] Grewal Verified Date/Time: 12/29/2017 23:04:35 Reading Location: [facility] Transitional Reading Room MR, MRA, NECK, WITHOUT IV [id number] 23:04:00Reason for exam:->Ischemic Stroke EvaluationFINAL REPORT CLINICAL HISTORY: StrokeIschemic Stroke Evaluation TECHNIQUE: MRI of the brain utilizing axial T2, FLAIR, GRE, DWI; sagittal and coronal T1-weighted images.MRA of the head utilizing 3-D time-of- flight technique, with 3-D reconstructions. MRA of the neck utilizing 2-D and 3- D xhzu-fv-tumasq technique, with 3-D reconstructions. COMPARISON: None MRI [...] telephone on 12/29/2017 11:04 PM. Signed: Yessi Grewalepsantiago Verified Date/Time: 12/29/2017 23:04:35 Reading Location: [address] Transitional Reading Room MR, BRAIN, WITHOUT [id number] 23:04:00Reason for exam:->Ischemic Stroke EvaluationFINAL REPORT CLINICAL HISTORY: StrokeIschemic Stroke Evaluation TECHNIQUE: MRI of the brain utilizing axial T2, FLAIR, GRE, DWI; sagittal and coronal T1-weighted images.MRA of the head utilizing 3-D time-of- flight technique, with 3-D reconstructions. MRA of the neck utilizing 2-D and 3- D fnyg-vc-ajwepd technique, with 3-D reconstructions. COMPARISON: None MRI [...] on 12/29/2017 11:04 PM. Signed: Yessi Grewal MDReport Verified Date/Time: 12/29/2017 23:04:35 Reading Location: [address] Reading Room POCT-GLUCOSE [id number] 21:28:00 Test Item Value Reference Range Comments POC-GLUCOSE METER (BEAKER) 136 mg/dL 70-110 TESTED AT [address] (test jxne=1360) [place] [address] POCT-GLUCOSE [id number] 15:56:00 Test Item Value Reference Range Comments POC-GLUCOSE METER (BEAKER) 198 mg/dL 70-110 TESTED AT [address] (test zchb=5831) [place] [address] POCT-GLUCOSE [id number] 14:50:00 Test Item Value Reference Range Comments POC-GLUCOSE METER (BEAKER) 204 mg/dL 70-110 TESTED AT [address] (test cfkd=0890) [place] [id number] POCT-GLUCOSE [id number] 12:16:00 Test Item Value Reference Range Comments POC-GLUCOSE METER (BEAKER) 127 mg/dL 70-110 TESTED AT [address] (test cwxv=7927) [place] [address] HEMOGLOBIN [id number] 10:57:00 Test Item Value Reference Range Comments HEMOGLOBIN A1C (BEAKER) (test axoy=692) 8.3 % 4.3-6.1 TROPONIN [id number] 02:04:00 Test Item Value Reference Range Comments TROPONIN I (BEAKER) (test uruq=930) 0.01 ng/mL 0.00-0.03 Troponin I (TnI) levels [...] acidosis, acute neurological disease, and persistent tachyarrhythmia.LIPID [id number] 01:58:00 Test Item Value Reference Range Comments TRIGLYCERIDES (BEAKER) (test foio=482) 100 mg/dL CHOLESTEROL (BEAKER) (test hkjp=182) 147 mg/dL HDL CHOLESTEROL (BEAKER) (test nnjv=029) 31 mg/dL LDL CHOLESTEROL CALCULATED (BEAKER) (test 96 mg/dL hzpd=546) Triglyceride Reference Range: Low Risk <150 Borderline 150- 199 High Risk 200-499 Very High Risk >=500Cholesterol Reference Range: Low Risk <200 Borderline 200-239 High Risk > 240HDL Cholesterol Reference Range: Low Risk >=60 High Risk <40LDL Cholesterol Reference Range: Optimal <100 Near Optimal 100-129 Borderline 130-159 High 160-189 Very High >=190BASIC METABOLIC [id number] 01:58:00 Test Item Value Reference Range Comments SODIUM (BEAKER) (test 132 meq/L 136-145 ater=401) POTASSIUM (BEAKER) (test 4.3 meq/L 3.5-5.1 gfel=655) CHLORIDE (BEAKER) (test 102 meq/L 98-107 rsyf=614) CO2 (BEAKER) (test 23 meq/L 22-29 oabv=079) BLOOD UREA NITROGEN 14 mg/dL 7-21 (BEAKER) (test fecu=812) CREATININE (BEAKER) (test 0.82 mg/dL 0.57-1.25 arcg=636) GLUCOSE RANDOM (BEAKER) 220 mg/dL 70-105 (test mvsy=063) CALCIUM (BEAKER) (test 8.6 mg/dL 8.4-10.2 tdtn=471) EGFR (BEAKER) (test 94 mL/min/1.73 sq m ESTIMATED GFR IS NOT ddrw=7435) ACCURATE CREATININE CLEARANCE IN PREDICTING GLOMERULAR FILTRATION RATE. ESTIMATED GFR IS NOT APPLICABLE FOR DIALYSIS PATIENTS. POCT-GLUCOSE [id number] 20:50:00 Test Item Value Reference Range Comments POC-GLUCOSE METER (BEAKER) 266 mg/dL 70-110 TESTED AT [facility] [address] (test thjg=2497) [facility] [address] TROPONIN [id number] 18:56:00 Test Item Value Reference Range Comments TROPONIN I (BEAKER) (test bbbb=555) 0.01 ng/mL 0.00-0.03 Troponin I (TnI) levels [...] and persistent tachyarrhythmia.RAD, CHEST, 1 VIEW, NON [id number] 16:54:00Reason for exam:->sobShould this be performed at [...] MDReport Verified Date/Time: 12/28/2017 16:54:45 Reading Location: [facility] Transitional Reading Room TSH/FREE T4 IF [id number] 14:24:00 Test Item Value Reference Range Comments THYROID STIMULATING HORMONE (BEAKER) (test 1.27 uIU/mL 0.35-4.94 pvpu=548) VITAMIN B12 AND [id number] 14:24:00 Test Item Value Reference Range Comments VITAMIN B12 (BEAKER) (test urkd=575) 452 pg/mL 213-816 FOLATE (BEAKER) (test mbim=032) 13.1 ng/mL >=7.0 [id number] 13:51:00 Test Item Value Reference Range Comments PHOSPHORUS (BEAKER) (test tncu=041) 3.9 mg/dL 2.3-4.7 [id number] 13:51:00 Test Item Value Reference Range Comments MAGNESIUM (BEAKER) (test ykpf=756) 2.0 mg/dL 1.6-2.6 COMPREHENSIVE METABOLIC [id number] 13:51:00 Test Item Value Reference Range Comments TOTAL PROTEIN (BEAKER) 7.3 gm/dL 6.0-8.3 (test jffe=463) ALBUMIN (BEAKER) (test 3.8 g/dL 3.5-5.0 rpof=7768) ALKALINE PHOSPHATASE 98 U/L 40-150 (BEAKER) (test obzo=334) BILIRUBIN TOTAL (BEAKER) 0.5 mg/dL 0.2-1.2 (test lgys=933) SODIUM (BEAKER) (test 131 meq/L 136-145 ecxn=391) POTASSIUM (BEAKER) (test 4.2 meq/L 3.5-5.1 xzbd=908) CHLORIDE (BEAKER) (test 99 meq/L 98-107 pilw=699) CO2 (BEAKER) (test 26 meq/L 22-29 yvdo=663) BLOOD UREA NITROGEN 11 mg/dL 7-21 (BEAKER) (test vbpj=296) CREATININE (BEAKER) (test 0.82 mg/dL 0.57-1.25 qprl=670) GLUCOSE RANDOM (BEAKER) 74 mg/dL 70-105 (test riib=222) CALCIUM (BEAKER) (test 9.3 mg/dL 8.4-10.2 fslb=686) AST (SGOT) (BEAKER) (test 16 U/L 5-34 nnwz=659) ALT (SGPT) (BEAKER) (test 14 U/L 6-55 mkkm=850) EGFR (BEAKER) (test 94 mL/min/1.73 sq m ESTIMATED GFR IS NOT viqt=5488) ACCURATE CREATININE CLEARANCE IN PREDICTING GLOMERULAR FILTRATION RATE. ESTIMATED GFR IS NOT APPLICABLE FOR DIALYSIS PATIENTS. BASIC METABOLIC [id number] 13:51:00 Test Item Value Reference Range Comments SODIUM (BEAKER) (test 131 meq/L 136-145 pqyl=697) POTASSIUM (BEAKER) (test 4.2 meq/L 3.5-5.1 eehd=455) CHLORIDE (BEAKER) (test 99 meq/L 98-107 nfcq=263) CO2 (BEAKER) (test 26 meq/L 22-29 lply=178) BLOOD UREA NITROGEN 11 mg/dL 7-21 (BEAKER) (test yhbj=230) CREATININE (BEAKER) (test 0.82 mg/dL 0.57-1.25 suzv=505) GLUCOSE RANDOM (BEAKER) 74 mg/dL 70-105 (test rzyq=792) CALCIUM (BEAKER) (test 9.3 mg/dL 8.4-10.2 ljyg=241) EGFR (BEAKER) (test 94 mL/min/1.73 sq m ESTIMATED GFR IS NOT susp=4875) ACCURATE CREATININE CLEARANCE IN PREDICTING GLOMERULAR FILTRATION RATE. ESTIMATED GFR IS NOT APPLICABLE FOR DIALYSIS PATIENTS. LIPID [id number] 13:51:00 Test Item Value Reference Range Comments TRIGLYCERIDES (BEAKER) (test ybdl=670) 41 mg/dL CHOLESTEROL (BEAKER) (test woin=695) 160 mg/dL HDL CHOLESTEROL (BEAKER) (test qybq=569) 37 mg/dL LDL CHOLESTEROL CALCULATED (BEAKER) (test 115 mg/dL shub=005) Triglyceride Reference Range: Low Risk <150 Borderline 150- 199 High Risk 200-499 Very High Risk >=500Cholesterol Reference Range: Low Risk <200 Borderline 200-239 High Risk > 240HDL Cholesterol Reference Range: Low Risk >=60 High Risk <40LDL Cholesterol Reference Range: Optimal <100 Near Optimal 100-129 Borderline 130-159 High 160-189 Very High >=190C-REACTIVE [id number] 13:51:00 Test Item Value Reference Range Comments C-REACTIVE PROTEIN (BEAKER) (test bchj=581) 0.52 mg/dL 0.00-0.50 PROTHROMBIN [id number] 13:33:00 Test Item Value Reference Range Comments PROTIME (BEAKER) (test uxcz=411) 13.9 seconds 11.7-14.7 INR (BEAKER) (test ynvh=382) 1.1 <=5.9 RECOMMENDED COUMADIN/WARFARIN INR THERAPY RANGESSTANDARD DOSE: 2.0 - 3.0 Includes: PROPHYLAXIS forvenous thrombosis, systemic embolization; TREATMENT for venous thrombosis and/or pulmonary embolus.HIGH RISK: Target INR is 2.5-3.5 for patients with mechanical heart valves.CBC (HEMOGRAM ONLY)2017-12-28 13:24:00 Test Item Value Reference Range Comments WHITE BLOOD CELL COUNT (BEAKER) (test bcyh=551) 8.5 K/ L 3.5-10.5 RED BLOOD CELL COUNT (BEAKER) (test dega=933) 5.45 M/ L 4.63-6.08 HEMOGLOBIN (BEAKER) (test nxrf=315) 17.2 GM/DL 13.7-17.5 HEMATOCRIT (BEAKER) (test tmod=380) 51.1 % 40.1-51.0 MEAN CORPUSCULAR VOLUME (BEAKER) (test imzy=782) 93.8 fL 79.0-92.2 MEAN CORPUSCULAR HEMOGLOBIN (BEAKER) (test 31.6 pg 25.7-32.2 phah=225) MEAN CORPUSCULAR HEMOGLOBIN CONC (BEAKER) (test 33.7 GM/DL 32.3-36.5 kmwc=603) RED CELL DISTRIBUTION WIDTH (BEAKER) (test 12.8 % 11.6-14.4 inbm=116) PLATELET COUNT (BEAKER) (test nany=668) 321 K/CU MM 150-450 MEAN PLATELET VOLUME (BEAKER) (test tqdi=916) 9.6 fL 9.4-12.4 NUCLEATED RED BLOOD CELLS (BEAKER) (test 0 /100 WBC 0-0 mvdv=351) CBC W/PLT COUNT & AUTO [id number] 13:24:00 Test Item Value Reference Range Comments WHITE BLOOD CELL COUNT (BEAKER) (test ttgj=225) 8.5 K/ L 3.5-10.5 RED BLOOD CELL COUNT (BEAKER) (test uhid=133) 5.45 M/ L 4.63-6.08 HEMOGLOBIN (BEAKER) (test evgz=496) 17.2 GM/DL 13.7-17.5 HEMATOCRIT (BEAKER) (test bdsf=523) 51.1 % 40.1-51.0 MEAN CORPUSCULAR VOLUME (BEAKER) (test zusy=917) 93.8 fL 79.0-92.2 MEAN CORPUSCULAR HEMOGLOBIN (BEAKER) (test 31.6 pg 25.7-32.2 qilp=433) MEAN CORPUSCULAR HEMOGLOBIN CONC (BEAKER) (test 33.7 GM/DL 32.3-36.5 eaur=946) RED CELL DISTRIBUTION WIDTH (BEAKER) (test 12.8 % 11.6-14.4 kvem=805) PLATELET COUNT (BEAKER) (test txns=848) 321 K/CU MM 150-450 MEAN PLATELET VOLUME (BEAKER) (test twik=626) 9.6 fL 9.4-12.4 NUCLEATED RED BLOOD CELLS (BEAKER) (test 0 /100 WBC 0-0 mosx=179) NEUTROPHILS RELATIVE PERCENT (BEAKER) (test 44 % ctpc=725) LYMPHOCYTES RELATIVE PERCENT (BEAKER) (test 42 % xofq=220) MONOCYTES RELATIVE PERCENT (BEAKER) (test 11 % dwhv=951) EOSINOPHILS RELATIVE PERCENT (BEAKER) (test 2 % jqwm=906) BASOPHILS RELATIVE PERCENT (BEAKER) (test 1 % idln=966) NEUTROPHILS ABSOLUTE COUNT (BEAKER) (test 3.75 K/ L 1.78-5.38 cgze=812) LYMPHOCYTES ABSOLUTE COUNT (BEAKER) (test 3.59 K/ L 1.32-3.57 womi=883) MONOCYTES ABSOLUTE COUNT (BEAKER) (test 0.90 K/ L 0.30-0.82 jfot=255) EOSINOPHILS ABSOLUTE COUNT (BEAKER) (test 0.20 K/ L 0.04-0.54 jtuy=363) BASOPHILS ABSOLUTE COUNT (BEAKER) (test 0.06 K/ L 0.01-0.08 kkjw=860) IMMATURE GRANULOCYTES-RELATIVE PERCENT (BEAKER) 0 % 0-1 (test abjz=1888) POCT-GLUCOSE [id number] 11:56:00 Test Item Value Reference Range Comments POC-GLUCOSE METER (BEAKER) 93 mg/dL 70-110 TESTED AT [facility] [address] [facility] (test mbfb=2624) [facility] [address]
[2018-10-08] MEDS ORDERED: SILVER NITRATE 1 APPL TOP ONE (23:10)
[2018-10-08] MEDS ORDERED: PHENYLEPHRINE 0.5% NOSE 15ML NAS ONE (23:12)
--- NOTE | 2018-10-09 00:27 | ER ---
Nurse's Notes [facility] Name: Jose Benson Age: 68 yrs Sex: Male : 1950 Arrival Date: 10/08/2018 Time: 22:23 Bed 15 Private MD: Diagnosis: Epistaxis Presentation: 10/08 22:24 Presenting complaint: Patient states: seen in ER, rhino rocket in left nares, pt with ak1 bleeding to right nares. Transition of care: patient was not received from another setting of care. Onset of symptoms was October 08, 2018. Risk Assessment: Do you want to hurt yourself or someone else? Patient reports no desire to harm self or others. Initial Sepsis Screen: Does the patient meet any 2 criteria? No. Patient's initial sepsis screen is negative. Does the patient have a suspected source of infection? No. Patient's initial sepsis screen is negative. Care prior to arrival: None. 22:24 Method Of Arrival: Ambulatory ak1 22:24 Acuity: DANDY 3 ak1 Historical: - Allergies: 22:26 No Known Allergies; ak1 - PMHx: 22:26 CVA x6; Diabetes - IDDM; Hyperlipidemia; Hypertension; neuropathy; Seizures; ak1 - PSHx: 22:26 Kidney removal right; spleenectomy; ak1 - Immunization history:: Adult Immunizations up to date. - Social history:: Smoking status: Patient uses tobacco products, denies chronic smoking, but will smoke occasionally, cigars. - Ebola Screening: : No symptoms or risks identified at this time. Screenin:45 Abuse screen: Denies threats or abuse. Nutritional screening: No deficits noted. jb4 Tuberculosis screening: No symptoms or risk factors identified. Fall Risk None identified. Assessment: 22:45 General: Appears in no apparent distress. comfortable, Behavior is calm, cooperative, jb4 appropriate for age, PT was here earlier today due to nose bleed, came back due to continuous bleeding, thinks that the blood from the right nare is overflow from the left.. Pain: Denies pain. Neuro: Level of Consciousness is awake, alert, obeys commands, Oriented to person, place, time, situation. Cardiovascular: Patient's skin is warm and dry. Respiratory: Airway is patent Respiratory effort is even, unlabored, Respiratory pattern is regular, symmetrical. GI: No signs and/or symptoms were reported involving the gastrointestinal system. : No signs and/or symptoms were reported regarding the genitourinary system. EENT: Nares with bleeding noted. Derm: Skin is intact, Skin is pink, warm \T\ dry. Musculoskeletal: Circulation, motion, and sensation intact. Range of motion: intact in all extremities. 10/09 00:00 Reassessment: Patient appears in no apparent distress at this time. Patient and/or jb4 family updated on plan of care and expected duration. Pain level reassessed. Patient is alert, oriented x 3, equal unlabored respirations, skin warm/dry/pink. bleeding stopped. 00:27 Reassessment: Pt reports bleeding started again in the right nare after walking to the [facility] restroom. 01:30 Reassessment: Patient appears in no apparent distress at this time. Patient and/or jb4 family updated on plan of care and expected duration. Pain level reassessed. Patient is alert, oriented x 3, equal unlabored respirations, skin warm/dry/pink. 02:30 Reassessment: Patient appears in no apparent distress at this time. Patient and/or jb4 family updated on plan of care and expected duration. Pain level reassessed. Patient is alert, oriented x 3, equal unlabored respirations, skin warm/dry/pink. PT refused further vital signs. 02:52 Reassessment: EMS at bedside for transfer of pt to [facility]. Pt is A\T\O x 4, bb resp unlabored, rhino rocket in place to left nares. Vital Signs: 10/08 22:26 BP 206 / 89; Pulse 91; Resp 18; Temp 97.6(TE); Pulse Ox 96% on R/A; Weight 72.57 kg ak1 (R); Height 5 ft. 9 in. (175.26 cm) (R); Pain 0/10; 22:50 BP 125 / 98; Pulse 94; Resp 16; Temp 98.4(O); Pulse Ox 96% on R/A; jb4 10/09 00:00 BP 120 / 91; Pulse 80; Resp 16; Pulse Ox 96% on R/A; jb4 01:00 BP 120 / 81; Pulse 79; Resp 16; Pulse Ox 100% on R/A; jb4 01:40 BP 115 / 75; Pulse 78; Resp 16; Temp 98.5(O); Pulse Ox 100% on R/A; jb4 02:00 BP 124 / 86; Pulse 73; Resp 16; Pulse Ox 98% on R/A; jb4 10/08 22:26 Body Mass Index 23.63 (72.57 kg, 175.26 cm) ak1 ED Course: 10/08 22:23 Patient arrived in ED. am2 22:25 Triage completed. ak1 22:26 Arm band placed on Patient placed in an exam room, on a stretcher, Patient notified of ak1 wait time. 22:35 Durga Brown MD is Attending Physician. gs 22:45 Patient has correct armband on for positive identification. Bed in low position. Call jb4 light in reach. Side rails up X 1. Pulse ox on. NIBP on. 22:50 Asif Olvera RN is Primary Nurse. 4 10/09 00:24 Carola Love MD is Referral Physician. 01:30 Initial lab(s) drawn, by ny, sent to lab. Inserted saline lock: 20 gauge in right jb4 antecubital area, using aseptic technique. Blood collected. 02:55 No provider procedures requiring assistance completed. Patient transferred, IV remains jb4 in place. Administered Medications: 10/08 23:40 Drug: Hakan-Synephrine [place] 0.5 % 2 sprays Route: Intranasal; Site: right nare; 4 10/09 00:14 Follow up: Response: No adverse reaction; Marked relief of symptoms [facility] 10/08 23:40 Drug: Silver Nitrate Applicators 4 application {Note: administered by ED provider to jb4 right nare.} Route: Topical; Site: wound; 10/09 00:14 Follow up: Response: No adverse reaction [facility] 01:43 Drug: Rocephin 1 grams Route: IV; Rate: calculated rate; Site: right antecubital; 4 01:45 Follow up: Response: No adverse reaction; IV Status: Completed infusion; IV Intake: jb4 10ml ; Given IVP per Pharmacy protocol. Intake: 01:45 IV: 10ml; Total: 10ml. [facility] Outcome: 00:24 Discharge ordered by . gs 01:07 ER care complete, transfer ordered by . gs 02:55 Transferred by ground EMS to [facility], Transfer form completed. jb4 02:55 Condition: stable 02:55 Discharge instructions given to patient, Instructed on the need for transfer, Demonstrated understanding of instructions. 02:57 Patient left the ED. jb4 Signatures: Sosa Singleton RN RN bb Teresa Royal RN RN ak1 Asif Olvera RN RN jb4 Maryuri Acosta am2 Durga Brown MD MD gs Corrections: (The following items were deleted from the chart) 00:10 00:09 BP 125 / 79; Pulse 50bpm; Resp 16bpm; Pulse Ox 100% RA; jb4 jb4 00:10 00:09 Reassessment: Patient appears in no apparent distress at this time. Patient jb4 and/or family updated on plan of care and expected duration. Pain level reassessed. Patient is alert, oriented x 3, equal unlabored respirations, skin warm/dry/pink. Left ED with mother, ambulated with steady gait, verbalized understanding of d/c and follow up instructions. jb4 00:28 00:00 Reassessment: Patient appears in no apparent distress at this time. Patient jb4 and/or family updated on plan of care and expected duration. Pain level reassessed. Patient is alert, oriented x 3, equal unlabored respirations, skin warm/dry/pink. jb4
--- NOTE | 2018-10-09 00:27 | EDPHYS ---
Physician Documentation [facility] Name: Jose Benson Age: 68 yrs Sex: Male : 1950 Arrival Date: 10/08/2018 Time: 22:23 Bed 15 Private MD: ED Physician Durga Brown HPI: 10/09 00:57 This 68 yrs old Male presents to ER via Ambulatory with complaints of Nose gs Bleed. 00:57 The patient presents with a nose bleed, that is apparently anterior, from the right gs nare. Onset: The symptoms/episode began/occurred acutely, yesterday. Modifying factors: The symptoms are alleviated by nothing. the symptoms are aggravated by nothing. Associated signs and symptoms: Loss of consciousness: the patient experienced no loss of consciousness, Pertinent negatives: blurred vision. Severity of symptoms: At their worst the symptoms were moderate in the emergency department the symptoms are unchanged. The patient has experienced similar episodes in the past, a few times. The patient has been recently seen at the [facility] Emergency Department, yesterday, for similar complaints. Historical: - Allergies: 10/08 22:26 No Known Allergies; ak1 - PMHx: 22:26 CVA x6; Diabetes - IDDM; Hyperlipidemia; Hypertension; neuropathy; Seizures; ak1 - PSHx: 22:26 Kidney removal right; spleenectomy; ak1 - Immunization history:: Adult Immunizations up to date. - Social history:: Smoking status: Patient uses tobacco products, denies chronic smoking, but will smoke occasionally, cigars. - Ebola Screening: : No symptoms or risks identified at this time. ROS: 10/09 00:57 All other systems are negative. gs Exam: 00:57 Head/Face: Normocephalic, atraumatic. Eyes: Pupils equal round and reactive to light, gs extra-ocular motions intact. Lids and lashes normal. Conjunctiva and sclera are non-icteric and not injected. Cornea within normal limits. Periorbital areas with no swelling, redness, or edema. Neck: Trachea midline, no thyromegaly or masses palpated, and no cervical lymphadenopathy. Supple, full range of motion without nuchal rigidity, or vertebral point tenderness. No Meningismus. Chest/axilla: Normal chest wall appearance and motion. Nontender with no deformity. No lesions are appreciated. Cardiovascular: Regular rate and rhythm with a normal S1 and S2. No gallops, murmurs, or rubs. Normal PMI, no JVD. No pulse deficits. Respiratory: Lungs have equal breath sounds bilaterally, clear to auscultation and percussion. No rales, rhonchi or wheezes noted. No increased work of breathing, no retractions or nasal flaring. Abdomen/GI: Soft, non-tender, with normal bowel sounds. No distension or tympany. No guarding or rebound. No evidence of tenderness throughout. Back: No spinal tenderness. No costovertebral tenderness. Full range of motion. Skin: Warm, dry with normal turgor. Normal color with no rashes, no lesions, and no evidence of cellulitis. MS/ Extremity: Pulses equal, no cyanosis. Neurovascular intact. Full, normal range of motion. Neuro: Awake and alert, GCS 15, oriented to person, place, time, and situation. Cranial nerves II-XII grossly intact. Motor strength 5/5 in all extremities. Sensory grossly intact. Cerebellar exam normal. Normal gait. 00:57 Constitutional: The patient appears alert, awake. 00:57 ENT: Nose: bleeding, is seen from the right nare, and is moderate, no septal hematoma is appreciated. Vital Signs: 10/08 22:26 BP 206 / 89; Pulse 91; Resp 18; Temp 97.6(TE); Pulse Ox 96% on R/A; Weight 72.57 kg ak1 (R); Height 5 ft. 9 in. (175.26 cm) (R); Pain 0/10; 22:50 BP 125 / 98; Pulse 94; Resp 16; Temp 98.4(O); Pulse Ox 96% on R/A; jb4 10/09 00:00 BP 120 / 91; Pulse 80; Resp 16; Pulse Ox 96% on R/A; jb4 01:00 BP 120 / 81; Pulse 79; Resp 16; Pulse Ox 100% on R/A; jb4 01:40 BP 115 / 75; Pulse 78; Resp 16; Temp 98.5(O); Pulse Ox 100% on R/A; jb4 02:00 BP 124 / 86; Pulse 73; Resp 16; Pulse Ox 98% on R/A; jb4 10/08 22:26 Body Mass Index 23.63 (72.57 kg, 175.26 cm) ak1 Procedures: 00:57 Epistaxis treatment: A moderate amount of bleeding noted from Treated using Oxymetazoline sprays, cauterization, silver nitrate, Bleeding decreased. MDM: 10/08 22:49 Patient medically screened. 10/09 00:57 Differential diagnosis: spontaneous epistaxis. Data reviewed: vital signs, nurses gs notes. Response to treatment: the patient's symptoms have mildly improved after treatment, and as a result, I will transfer. 10/09 01:16 Order name: CBC with Diff 10/09 01:16 Order name: Basic Metabolic Panel 10/09 01:16 Order name: Protime (+inr) 10/09 01:16 Order name: Ptt, Activated gs Administered Medications: 10/08 23:40 Drug: [place]-Synephrine [place] 0.5 % 2 sprays Route: Intranasal; Site: right nare; [facility] 10/09 00:14 Follow up: Response: No adverse reaction; Marked relief of symptoms [facility] 10/08 23:40 Drug: Silver Nitrate Applicators 4 application {Note: administered by ED provider to jb4 right nare.} Route: Topical; Site: wound; 10/09 00:14 Follow up: Response: No adverse reaction [facility] 01:43 Drug: Rocephin 1 grams Route: IV; Rate: calculated rate; Site: right antecubital; [facility] 01:45 Follow up: Response: No adverse reaction; IV Status: Completed infusion; IV Intake: jb4 10ml ; Given IVP per Pharmacy protocol. Disposition: 10/09/18 01:07 Transfer ordered to [facility]. Diagnosis is Epistaxis. - Reason for transfer: Higher level of care. - Accepting physician is marissa. - Condition is Stable. - Problem is new. - Symptoms have improved. Signatures: Dispatcher [employer] EDMS Teresa Royal RN RN ak1 Asif Olvera RN RN jb4 Durga Brown MD MD Corrections: (The following items were deleted from the chart) 00:46 00:24 10/09/2018 00:24 Discharged to Home. Impression: Epistaxis. Condition is Stable. gs Forms are Medication Reconciliation Form, Thank You Letter, Antibiotic Education, Prescription Opioid Use. Follow up: Carola Love; When: 1 - 2 days; Reason: Re-evaluation by your physician. 02:57 01:07 10/09/2018 01:07 Transfer ordered to [facility]. Diagnosis is jb4 Epistaxis. Reason for transfer: Higher level of care. Accepting physician is marissa. Condition is Stable. Problem is new. Symptoms have improved.
[2018-10-09] MEDS ORDERED: CEFTRIAXONE/SWI 1gm 1 GM/10 ML SYR ONE (01:53)
[2018-10-09 02:26] LABS: Absolute Lymphocytes (CBC) 3.8 K/uL (0.7-4.9); Absolute Monocytes 1.3 K/uL (0.1-1.3); Absolute Neutrophil 5.2 K/uL (1.8-8.0); Basophils % 0.6 % (0-1.3); Eosinophils % 2.2 % (0-4.4); Lymphocytes % 35.6 % (15.3-44.8); MPV 9.5 fL (7.6-11.3); Monocytes % 12.6 % (3.3-12.3); Protime INR 1.03; RBC Red Blood Cell Count 4.92 M/uL (4.33-5.43)
[2018-10-09 02:30] LABS: BUN Blood Urea Nitrogen 25 mg/dL (7-18); Bicarbonate 27 mmol/L (21-32); Glucose Level 147 mg/dL (74-106); Sodium Level 138 mmol/L (136-145)
== END 2018-10-09 02:57 | disposition short-term general hospital (02) ==
LOC: ER 22:20
DX: R04.0 Epistaxis (principal); I10 Essential (primary) hypertension; Z72.0 Tobacco use; Z86.73 Personal history of transient ischemic attack (TIA), and cerebral infarction without residual deficits
CPT/HCPCS: 30901; 85025; 80048; 36415; 85610; 85730; 96374; 99285; J0696